=== PATIENT | female | born 1960 | race Caucasian/White ===

== ENCOUNTER → 2016-06-02 | Outpatient (CLI) | payer MEDICARE, OTHER ==
[2014-07-03 07:14] VITALS: BP 121/88
[~2016-06-02] MED LIST: ACET500T33 PO; ACLI400A2 IH; ALBU8.5H6 IH; ASPI1TAB30 PO; BACL10TA PO; BENZ100C PO; BUPIVACAINE MPF 0.25% 10 ML VIAL. ONE; CHOL20002 PO; DEXT15CA18 PO; DICL100G7 TP; DIPH25CA58 PO; ENOX40DI SQ; EPIN0.3A4 IJ; ESTR2TAB PO; FLUT16SP2 NS; FOLI1TAB16 PO; HYDR12.53 PO; HYDR4TAB PO; IBUP200T43 PO; INSU100I13 SQ; IOHEXOL 180 MG/ML 10 ML VIAL. ONE; LACT10SO PO; LEVALBUTER1.25 MG/0. IH; LINA145C PO; LISI1TAB7 PO; MAGN1TAB PO; METF10002 PO; MINE120C TP; MOME13HF2 IH; MULT1TAB11 PO; OMAL150V SQ; ONDA4TAB7 PO; OXYC10TA PO; OXYC10TA32 PO; OXYC1TAB7 PO; OXYC20TA34 PO; OXYC5CAP3 PO; OXYC5TAB PO; POTA10TA4 PO; POTA20TA12 PO; PROAIR HFA8.5 GM IH; PROC25SU21 RC; SODI500S4 PO; TIZA4CAP3 PO; TRAM50TA PO; VENL150C PO; VENL75CA PO; VENTOLIN HFA18 GM IH; methylPREDNISolone ACETATE 40 MG/ML VIAL. ONE; methylPREDNISolone ACETATE 80 MG/ML VIAL. ONE
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
== END ==
LOC: PNCL 07:51
PROVIDERS: ATTEND Anesthesiology
DX: M51.16 Intervertebral disc disorders with radiculopathy, lumbar region (principal); M50.10 Cervical disc disorder with radiculopathy, unspecified cervical region; M47.22 Other spondylosis with radiculopathy, cervical region; M96.1 Postlaminectomy syndrome, not elsewhere classified
CPT/HCPCS: 62323; J1030; J1040; J3490

== ENCOUNTER → 2016-06-09 | Outpatient (CLI) | payer MEDICARE, OTHER ==
[2014-07-03 07:14] VITALS: BP 121/88
[~2016-06-09] MED LIST changes: -IOHEXOL 180 MG/ML 10 ML VIAL. ONE; -methylPREDNISolone ACETATE 80 MG/ML VIAL. ONE
--- NOTE | 2016-06-10 13:17 | PAIN ---
DATE OF SERVICE: 06/09/2016 PROGRESS NOTE FOR PAIN CLINIC DIAGNOSES: 1. Myofascial pain. 2. Lumbar degenerative disk disease with lumbar radiculopathy. 3. Cervical radiculopathy with cervical degenerative disk disease and spondylosis with post-cervical laminectomy syndrome. HISTORY OF PRESENT ILLNESS: This is a 55-year-old female, who returns for followup status post lumbar epidural steroid injection x 2, most recently about 1 week ago. The patient reports she did very well with this, but the pain is returned now movingly in the mid and low back, but also the upper back. The patient has been wearing a prosthesis on her left leg. She has above knee amputation, which has been very heavy, is a temporary prosthesis and has been causing increased pain in her back with ambulation, standing and walking and she feels the exacerbation of pain. Also, she retried on a new medication for the gastroesophageal reflux, ____ Dexilant and after few hours of taking, had significant muscle spasms, pain throughout the legs, arms and the back. She reports that exacerbate the pain significantly right after she took it and feels that this is certainly a side effect from it and indeed this can have side effects from this medication. The patient reports still significant pain in the low back, mid back, upper back spasms in quadriceps as well, especially on the left side, but also on the right, rated 10 on a scale of 10, is a constant aching, intense pain, burning and stabbing in the mid back, upper back, low back, bilateral hips, mostly left posterior gluteus, but also in the anterior quadriceps as well. PHYSICAL EXAMINATION: VITAL SIGNS: The patient's blood pressure is 157/82, pulse 90, respirations 20, temperature 98.0 degrees Fahrenheit. Height is 5 feet 3 inches, weight is 174 pounds. GENERAL: The patient is awake, alert, oriented, appropriate, very pleasant demeanor. HEENT: Shows normocephalic, atraumatic. Extraocular movements are intact and symmetrical. Oral cavity, mucous membranes are moist and pink. Dentition is intact. NECK: Shows anterior throat supple without palpable lymphadenopathy noted. Swallow reflex is symmetrical. Neck shows full rotational motion of the cervical spine without significant tenderness or difficulty including extension and flexion. CHEST: Shows normal on inspection. Breath sounds are clear to auscultation bilaterally. HEART: Shows S1 and S2 clear. ABDOMEN: Soft, nontender, nondistended. No palpable organomegaly is noted. No rebound or guarding demonstrated. BACK: The patient's back shows spine grossly in the midline. Cervical paraspinous muscle shows some mild tenderness with palpation bilaterally, but only mildly without asymmetry atrophy, hypertrophy. The patient's low back shows some moderate tenderness with palpation in multiple areas are very firm rope-like musculature, very tender on the left paraspinous musculature in the mid upper and lower distribution consistent with trigger point areas of musculature. There is also present in the bilateral lower thoracic paraspinous musculature is very firm rope-like musculature bilaterally, appears roughly symmetrical with very firm, very tender to palpation, even moderate palpation in these regions with very firm rope-like musculature palpable, consistent with trigger point areas of musculature in this region. In this region of the thoracic paraspinous muscles, also with palpation over the left gluteus very firm rope-like musculature x 3 areas which is very tender and firm one area on the right side ____ consistent with trigger point musculature as well with the patient's lower extremities, again, above knee amputation is demonstrated on the left side. The patient has significant tenderness in the superior aspect of the quadriceps musculature on both legs. Very tender rope-like firm musculature easily palpable without specific radiation. PLAN Options were discussed with the patient including the patient's old chart was reviewed as well as her current medication regimen updated. Current review of systems updated today as well. We discussed trigger point injections. She has had an epidural injection about a week ago and then the main part of her pain ____ becoming from myofascial etiology at this time, we will proceed with trigger point injections of the aforementioned musculature. Risks were again discussed including, but not limited to bleeding, infection, possibility of intravascular injection sequelae, spread of local anesthetic and numbness, pneumothorax, side effects of steroid medication, exacerbation of the patient's pain and poor results regarding pain control. The patient understands and wishes to proceed. The patient will return to the clinic in approximately 2 weeks for followup, was counseled on return appointment, activity level, and side effects to be aware of. DIAGNOSES: 1. Myofascial pain. 2. Lumbar degenerative disk disease with lumbar radiculopathy. 3. Cervical radiculopathy with cervical degenerative disk disease and spondylosis with post-laminectomy syndrome. PROCEDURE: Trigger point injections of the bilateral thoracic musculature, bilateral lumbar paraspinous musculature, bilateral quadriceps musculature and the bilateral gluteus musculature. Local anesthetic was used under sterile prep and drape with medications injected a total of 40 mg Depo-Medrol plus total of 14 mL of 0.25% bupivacaine after negative aspiration at each injection site. CONDITION AT DISCHARGE: The patient is stable. The patient tolerated the procedure well, had no complications. MI FRANCO MD DR: MINESH/stephanie JOB#: [id number] / [id number]
== END ==
LOC: PNCL 13:26
PROVIDERS: ATTEND Anesthesiology
DX: M51.16 Intervertebral disc disorders with radiculopathy, lumbar region (principal); M50.10 Cervical disc disorder with radiculopathy, unspecified cervical region; M47.22 Other spondylosis with radiculopathy, cervical region; M96.1 Postlaminectomy syndrome, not elsewhere classified; J45.909 Unspecified asthma, uncomplicated; K58.9 Irritable bowel syndrome, unspecified; Z90.710 Acquired absence of both cervix and uterus; M86.9 Osteomyelitis, unspecified; Z96.60 Presence of unspecified orthopedic joint implant
CPT/HCPCS: 20553; J1030; J3490

== ENCOUNTER 2016-07-05 07:57 | Inpatient (IN) | payer OTHER ==
[2016-07-05] VITALS (12 sets, daily range): BP systolic 91–109; BP diastolic 51–79
[~2016-07-05] VITALS: Ht 160 cm; Wt 74.4 kg
[~2016-07-05 07:57] MED LIST changes: +ACYC800T PO; -BUPIVACAINE MPF 0.25% 10 ML VIAL. ONE; +CLOB15CR TP; +ESOM40CA PO; +FLUT9.9S NS; +IV RINGERS,LACTATED 1000ML 1,000 ML IV SCH; +LIDOCAINE 1% 1 ML SYRINGE. ID PRN; +METF500T4 PO; +ONDA8TAB12 PO; +ONDANSETRON PF 4 MG/2 ML VIAL. IV PRN; +SILV20CR4 TP; +XOPENEX HFA15 GM IH; -methylPREDNISolone ACETATE 40 MG/ML VIAL. ONE
[2016-07-05] MEDS ORDERED: PROAIR HFA8.5 GM INH (08:30)
[2016-07-05] MEDS ORDERED: MOME13HF IH (08:31)
[2016-07-05] MEDS ORDERED: INSU100I13 SQ (08:35)
[2016-07-05] MEDS ORDERED: METF500T4 PO (08:37)
[2016-07-05] MEDS ORDERED: MIDAZOLAM HCL 2 MG/2 ML VIAL. ONE (08:53)
[2016-07-05] MEDS ORDERED: SUCCINYLCHOLINE 200 MG/10 ML VIAL. ONE (08:53)
[2016-07-05] MEDS ORDERED: ROCURONIUM 50 MG/5 ML VIAL. ONE (08:53)
[2016-07-05] MEDS ORDERED: FENTANYL PF 100 MCG/2 ML VIAL. ONE (08:53)
[2016-07-05] MEDS ORDERED: DEXAMETHASONE SOD PHOS 20 MG/5 ML VIAL. ONE (08:53)
[2016-07-05] MEDS ORDERED: PROPOFOL 20 ML IV ONE (08:53)
[2016-07-05] MEDS ORDERED: LIDOCAINE 2% 100 MG/5 ML DISP.SYRIN. ONE (08:53)
[2016-07-05] MEDS ORDERED: DESFLURANE > 120 MINUTES IH ONE (08:53)
[2016-07-05] MEDS ORDERED: ONDANSETRON PF 4 MG/2 ML VIAL. ONE (08:53)
[2016-07-05] MEDS ORDERED: SODIUM OXYBATE (08:54)
[2016-07-05] MEDS ORDERED: HYDROMORPHONE 2 MG/ML VIAL. ONE ×2 (09:51→13:32)
[2016-07-05] MEDS ORDERED: KETAMINE HCL 500 MG/10 ML VIAL. ONE (09:54)
[2016-07-05] MEDS ORDERED: SURGICEL HEMOSTAT 4X8 EACH. ONE ×2 (10:06→10:07)
[2016-07-05] MEDS ORDERED: BUPIVAC MPF-EPI 0.5%-1:200000 30 ML VIAL. ONE (10:07)
[2016-07-05] MEDS ORDERED: EPHEDRINE PF IN SALINE 50 MG/5 ML DISP.SYRIN. IV ONE (10:46)
[2016-07-05] MEDS ORDERED: SUGAMMADEX SODIUM 200 MG/2 ML VIAL. IVP ONE (12:22)
[2016-07-05] MEDS ORDERED: POTASSIUM CL 20MEQ D5-0.45NACL 1,000 ML IV SCH (12:55)
--- NOTE | 2016-07-05 12:55 | PDOC4 ---
Operative Note Operative Note Operative Note Preoperative Diagnosis: Gastroesophageal reflux disease Postoperative Diagnosis: Same Procedure: Laparoscopic revision and redo of Torin fundoplication Surgeon: Dario Fam.: Dr. Toney Anesthesia: Gen. Estimated Blood Loss: 20 mL Specimen: None Drains: None Complications: None Indications: The patient is a 55-year-old female with a prior history of severe gastric esophageal reflux disease. She underwent a laparoscopic Torin fundoplication years ago with a very good result. Over the last few months however she's had recurrence of her reflux disease. Evaluation suggests loosening of the prior wrap. She was referred for surgical revision and possible redo fundoplication. The risks of surgery were discussed which include bleeding, infection, recurrent herniation, gastric or esophageal perforation, visceral injury, recurrent reflux, gas bloat syndrome, dysphasia, potential need for additional surgeries or procedures. She understands and would like to proceed. Description: The patient was taken to the operating room and placed supine on the operating table. General anesthesia was performed. The patient was then placed in lithotomy. The abdomen was prepped with ChloraPrep and draped in a standard surgical fashion. A small incision was made in the right upper quadrant through which a visualized 5 mm trocar was inserted. A pneumoperitoneum was then created and the laparoscope was introduced. Initial inspection showed very few adhesions and no evidence of intra-abdominal bleeding or visceral injury. A 5 mm trocar was then inserted to the left and superior to the umbilicus. The camera port was relocated to that trocar. The previous right upper quadrant trocar was exchanged with a 12 mm trocar through which a soft fan retractor was used to elevate the left lobe of the liver. In the right upper quadrant a 5 mm trocar was inserted. In the left upper quadrant an 11 mm trocar was inserted while in the left lateral abdomen a 5 mm trocar was inserted. There were some anterior abdominal wall adhesions each were readily freed up with a combination of the ultrasonic scissors and sharp dissection. We then directed our attention to the upper portion of the stomach. There were some hepatic adhesions to the stomach which were freed up with sharp dissection. We were able to identify some of the initial anatomy from the prior fundoplication. The fundus did appear to have loosened significantly and the prior Ethibond sutures were seen and divided. As expected there was a significant amount of scar tissue and adhesions surrounding the prior fundoplication. These were fairly filmy however and readily mobilized and lysed. We were able to then delineate the left and right kaia and the prior approximating silk suture was well intact. There was no evidence of a significant hiatal hernia. We continued dividing the remaining adhesions of the fundoplasty allowing for complete mobilization of the fundus and clear identification of the distal esophagus. We were able to readily reapproximate the fundus to re-create a new and tighter fundoplication. A shoeshine maneuver was used to ensure no kinks or twists.. The left and right kaia were then reapproximated anteriorly with a single 2-0 silk suture using the Endo Stitch device. The fundus was then wrapped around in a 360 fashion creating the fundoplication. An initial 2-0 Ethibond suture was used securing the fundic lips together. Another suture was placed superior to this which incorporated a small bite of the anterior esophagus. An additional suture was then placed inferiorly completing the fundoplication. At this point hemostasis was good, and the fundoplication was intact with a nice orientation. The 11 and 12 mm trochars were then removed and the fascia closed with 0 Vicryl using an Endo Close. The remaining ports were removed and the pneumoperitoneum was relieved. Skin at all incisions was closed with 4-0 Monocryl. Steri-Strips and dressings were applied. The patient tolerated the procedure well. NEAL PITTMAN MD Jul 05, 2016 12:55
[2016-07-05] MEDS ORDERED: ONDANSETRON PF 4 MG/2 ML VIAL. IV PRN (13:00)
[2016-07-05] MEDS ORDERED: 0.9 % SODIUM CHLORIDE 10 ML DISP.SYRIN. IV PRN (13:00)
[2016-07-05] MEDS ORDERED: HYDROMORPHONE STANDARD PCA 30 ML IV PRN (13:00)
[2016-07-05] MEDS ORDERED: ALBUTEROL SULFATE 2.5 MG/3 ML NEBU. NEB PRN (13:30)
[2016-07-05] MEDS: HYDROMORPHONE 2 MG/ML VIAL. IV PRN ×5 (13:36→15:33)
[2016-07-05] MEDS ORDERED: MEPERIDINE PF 25 MG/ML VIAL. IV PRN (14:00)
[2016-07-05] MEDS: VENLAFAXINE 50 MG TABLET. PO SCH ×3 (14:00→20:44)
[2016-07-05] MEDS: DIPHENHYDRAMINE 50 MG/ML VIAL IV PRN ×4 (14:47→19:34)
[2016-07-05] MEDS: DIPHENHYDRAMINE 50 MG/ML VIAL IVP PRN ×2 (15:41→16:09)
[2016-07-05] MEDS ORDERED: NON FORMULARY ITEM (Levalbuterol Tartrate (Xopenex Hfa) 2 PUFF) IH SCH (16:00)
[2016-07-05] MEDS: IV 1/2 NORMAL SALINE 1,000 ML IV SCH (16:35)
[2016-07-05] MEDS ORDERED: PNEUMOCOCCAL VAX SCREEN BY RX. MC ONE (17:15)
[2016-07-05] MEDS: ALBUTEROL SULFATE 2.5 MG/3 ML NEBU. NEB SCH ×2 (17:16→19:48)
[2016-07-05] MEDS: BUDESONIDE 0.5 MG/2 ML NEBU NEB SCH (19:48)
[2016-07-05] MEDS ORDERED: NON FORMULARY ITEM (Mometasone/Formoterol (Dulera 200 Mcg/5 Mcg Inhaler) 2 PUFF) IH SCH (21:00)
[2016-07-05] MEDS ORDERED: PNEUMOC CONJ VACC 23-VALENT 0.5 ML VIAL. VAX IM ONE (21:00)
[2016-07-05] MEDS ORDERED: AUTO INJCT IM PRN (21:45)
[2016-07-05] MEDS ORDERED: EPINEPHRINE 0.3 MG/0.3 ML IM PRN (21:45)
[2016-07-05] MEDS ORDERED: DIPHENHYDRAMINE 50 MG/ML VIAL IVP PRN (21:45)
[2016-07-05] MEDS ORDERED: VENLAFAXINE 50 MG TABLET. PO SCH (22:00)
[2016-07-05] MEDS: FENTANYL PF 100 MCG/2 ML VIAL. IV PRN (23:59)
[2016-07-06] VITALS (7 sets, daily range): BP systolic 96–130; BP diastolic 72–82
[2016-07-06] MEDS: FENTANYL PF 100 MCG/2 ML VIAL. IV PRN ×3 (02:06→06:01)
--- NOTE | 2016-07-06 02:31 | HP ---
ADMIT DATE: 07/05/2016 CHIEF COMPLAINT: Severe GERD; status post redo of Torin fundoplication. HISTORY OF PRESENT ILLNESS: The patient is a 55-year-old woman with multiple medical issues including GERD for which she actually had undergone a Torin fundoplication several years ago with apparently good results. However, here more recently GERD had become worse and worse despite increase in medications including two proton pump inhibitors. She was therefore taken to the OR today by Dr. Bishop for a redo to help her symptoms. Surgery went without a hitch. She is now on the med/surg floor for observation. PAST MEDICAL HISTORY: GERD as above, hiatal hernia, renal calculi, irritable bowel syndrome, history of deep vein thrombosis, asthma, bronchitis, narcolepsy, cataplexy, she is on BiPAP at night. 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 PAST SURGICAL HISTORY: Cholecystectomy, JEFFERSON with bilateral oophorectomies, splenectomy, bilateral fasciotomies of her lower extremities for compartment syndrome, cervical spine fusion, left ankle surgery and polio/postpolio syndrome. FAMILY HISTORY: Essentially negative. SOCIAL HISTORY: Lives with her fiance. No toxic habits. ALLERGIES: Multiple including BETADINE, BENZOIN ADHESIVES, CODEINE, VALIUM, ERYTHROMYCIN, DEMEROL, MORPHINE, VANCOMYCIN, PREDNISONE, KEFLEX, LYRICA and REGLAN. HOME MEDICATIONS: MAR reconciled with home medication list. REVIEW OF SYSTEMS: Pain currently is under good control. She does have a nasal trumpet BiPAP in place. Denies any concerns for itching, Benadryl 12.5 insufficient. PHYSICAL EXAMINATION: VITAL SIGNS: From today show a blood pressure of 98/61, heart rate of 85, respiratory rate at 18. She is afebrile. GENERAL: This is an overweight 55-year-old woman, alert and oriented, in no acute distress. HEENT: Shows no scleral icterus. Nasal trumpet in place. Oral mucosa pink and moist, edentulous. NECK: Supple. LUNGS: Clear to auscultation anteriorly. HEART: Regular rate and rhythm. ABDOMEN: Slightly distended, soft. Tenderness to palpation. Incisions from laparoscopy are covered and dry. EXTREMITIES: Show no edema. Left AKA. LABORATORY DATA: CBC from 7 days ago with WBC of 12.5, hemoglobin 13, platelets at 225. Chemistries are not available. ASSESSMENT AND PLAN: The patient is a 55-year-old woman with multiple unusual medical issues including severe GERD for which she underwent a redo Torin fundoplication today. She tolerated the procedure without any difficulties. Pain regimen as her surgery, Dr. Bishop, with Dilaudid [employer]LE[employer] ASSISTANT. We will continue all her home medication, especially for asthma and allergies. These will be converted to nebulizers and medications available here in the hospital. For her narcolepsy and cataplexy, she will continue on her BiPAP at night. Continue relatively high dose of venlafaxine as well. The patient does have a history of diabetes for which she is on metformin. We will hold medications here in acute phase, monitor with insulin sliding scale only for the time being. Lantus on hold while she is n.p.o. Prophylaxis will be instituted in the morning with Lovenox. Disposition pending on p.o. clearance and eval by surgery. MICHELL MOREAU MD DR: UR/nts JOB#: [id number] / [id number] ecc NICHOLAS HEWITT MD
[2016-07-06] MEDS: IV 1/2 NORMAL SALINE 1,000 ML IV SCH ×3 (03:59→23:21)
[2016-07-06] MEDS: BUDESONIDE 0.5 MG/2 ML NEBU NEB SCH ×2 (07:07→20:42)
[2016-07-06] MEDS: ALBUTEROL SULFATE 2.5 MG/3 ML NEBU. NEB SCH ×4 (07:07→20:42)
[2016-07-06] MEDS ORDERED: PANTOPRAZOLE IV PUSH 40 MG VIAL. IVP SCH (07:30)
[2016-07-06] MEDS ORDERED: OXYCODONE/APAP 5/325 TABLET. PO PRN ×2 (07:30→07:45)
[2016-07-06 07:56] LABS: BASO # 0.1 x10^3/uL (0.0-0.2); BASO % 1 % (0-3); EOS % 0 % (0-3); HEMATOCRIT 29.9 % (36.0-47.0); HEMOGLOBIN 9.7 g/dL (12.0-15.5); LYMPH # 2.9 x10^3/uL (1.0-4.8); LYMPH % 24 % (24-48); MEAN CORPUSCULAR HEMOGLOBIN 31 pg (25-35); MEAN CORPUSCULAR HGB CONC 32 g/dL (31-37); MEAN CORPUSCULAR VOLUME 95 fL (79-100); MONO % 12 % (0-9); NEUT % 63 % (31-73); PLATELET COUNT 313 x10^3/uL (140-400); RED BLOOD COUNT 3.16 x10^6/uL (3.50-5.40); RED CELL DISTRIBUTION WIDTH 14.9 % (11.5-14.5)
[2016-07-06] MEDS: FLUTICASONE 50MCG/NASAL SPRAY 16GM BOTTLE. NS SCH (07:57)
[2016-07-06 08:17] LABS: ALBUMIN 2.9 g/dL (3.4-5.0); CALCIUM 8.7 mg/dL (8.5-10.1); CREATININE 0.7 mg/dL (0.6-1.0); GFR 86.6; POTASSIUM 4.1 mmol/L (3.5-5.1); TOTAL BILIRUBIN 0.3 mg/dL (0.2-1.0); TOTAL PROTEIN 5.7 g/dL (6.4-8.2)
[2016-07-06] MEDS: NON FORMULARY ITEM PO SCH (08:23)
[2016-07-06] MEDS: ENOXAPARIN 40 MG/0.4 ML DISP.SYRIN. SQ SCH (08:45)
--- NOTE | 2016-07-06 10:37 | PDOC ---
URIAH BURK PRODUCTION CORRUGATOR 07/06/16 1037: SURGICAL PROGRESS NOTE Subjective tolerating clears no coughing, reflux symptoms postop no nausea would like hartmann out reports pill a little harsh down throat Vital Signs Vital Signs Date Time Temp Pulse Resp B/P Pulse Ox O2 Delivery O2 Flow Rate FiO2 07/06/16 07:55 16 92 Room Air 07/06/16 07:18 4.0 07/06/16 06:31 99.0 72 119/72 99.0 I&O Intake and Output 07/06/16 07:00 Intake Total 2210 ml Output Total 550 ml Balance 1660 ml Intake Oral 30 ml IV Total 2000 ml Other 180 ml Output Urine Total 550 ml General: Alert, Oriented X3, Cooperative, No acute distress Abdomen: Soft, Other (ND, lap dressings dry) Labs Laboratory Tests Test 07/06/16 07:40 White Blood Count 12.0x10^3/uL (4.0-11.0) Red Blood Count 3.16x10^6/uL (3.50-5.40) Hemoglobin 9.7g/dL (12.0-15.5) Hematocrit 29.9% (36.0-47.0) Mean Corpuscular Volume 95fL (79-100) Mean Corpuscular Hemoglobin 31pg (25-35) Mean Corpuscular Hemoglobin Concent 32g/dL (31-37) Red Cell Distribution Width 14.9% (11.5-14.5) Platelet Count 313x10^3/uL (140-400) Neutrophils (%) (Auto) 63% (31-73) Lymphocytes (%) (Auto) 24% (24-48) Monocytes (%) (Auto) 12% (0-9) Eosinophils (%) (Auto) 0% (0-3) Basophils (%) (Auto) 1% (0-3) Neutrophils # (Auto) 7.6x10^3uL (1.8-7.7) Lymphocytes # (Auto) 2.9x10^3/uL (1.0-4.8) Monocytes # (Auto) 1.5x10^3/uL (0.0-1.1) Eosinophils # (Auto) 0.0x10^3/uL (0.0-0.7) Basophils # (Auto) 0.1x10^3/uL (0.0-0.2) Sodium Level 143mmol/L (136-145) Potassium Level 4.1mmol/L (3.5-5.1) Chloride Level 107mmol/L (98-107) Carbon Dioxide Level 27mmol/L (21-32) Anion Gap 9 (6-14) Blood Urea Nitrogen 12mg/dL (7-20) Creatinine 0.7mg/dL (0.6-1.0) Estimated GFR (Cockcroft-Gault) 86.6 BUN/Creatinine Ratio 17 (6-20) Glucose Level 95mg/dL (70-99) Calcium Level 8.7mg/dL (8.5-10.1) Total Bilirubin 0.3mg/dL (0.2-1.0) Aspartate Amino Transf (AST/SGOT) 44U/L (15-37) Alanine Aminotransferase (ALT/SGPT) 41U/L (14-59) Alkaline Phosphatase 66U/L (46-116) Total Protein 5.7g/dL (6.4-8.2) Albumin 2.9g/dL (3.4-5.0) Albumin/Globulin Ratio 1.0 (1.0-1.7) Laboratory Tests Test 07/06/16 07:40 White Blood Count 12.0x10^3/uL (4.0-11.0) Red Blood Count 3.16x10^6/uL (3.50-5.40) Hemoglobin 9.7g/dL (12.0-15.5) Hematocrit 29.9% (36.0-47.0) Mean Corpuscular Volume 95fL (79-100) Mean Corpuscular Hemoglobin 31pg (25-35) Mean Corpuscular Hemoglobin Concent 32g/dL (31-37) Red Cell Distribution Width 14.9% (11.5-14.5) Platelet Count 313x10^3/uL (140-400) Neutrophils (%) (Auto) 63% (31-73) Lymphocytes (%) (Auto) 24% (24-48) Monocytes (%) (Auto) 12% (0-9) Eosinophils (%) (Auto) 0% (0-3) Basophils (%) (Auto) 1% (0-3) Neutrophils # (Auto) 7.6x10^3uL (1.8-7.7) Lymphocytes # (Auto) 2.9x10^3/uL (1.0-4.8) Monocytes # (Auto) 1.5x10^3/uL (0.0-1.1) Eosinophils # (Auto) 0.0x10^3/uL (0.0-0.7) Basophils # (Auto) 0.1x10^3/uL (0.0-0.2) Sodium Level 143mmol/L (136-145) Potassium Level 4.1mmol/L (3.5-5.1) Chloride Level 107mmol/L (98-107) Carbon Dioxide Level 27mmol/L (21-32) Anion Gap 9 (6-14) Blood Urea Nitrogen 12mg/dL (7-20) Creatinine 0.7mg/dL (0.6-1.0) Estimated GFR (Cockcroft-Gault) 86.6 BUN/Creatinine Ratio 17 (6-20) Glucose Level 95mg/dL (70-99) Calcium Level 8.7mg/dL (8.5-10.1) Total Bilirubin 0.3mg/dL (0.2-1.0) Aspartate Amino Transf (AST/SGOT) 44U/L (15-37) Alanine Aminotransferase (ALT/SGPT) 41U/L (14-59) Alkaline Phosphatase 66U/L (46-116) Total Protein 5.7g/dL (6.4-8.2) Albumin 2.9g/dL (3.4-5.0) Albumin/Globulin Ratio 1.0 (1.0-1.7) Problem List Problems Medical Problems: (1) GERD (gastroesophageal reflux disease) Status: Acute Assessment/Plan s/p lap revision of fundoplication change to liquids oxycodone, DC hartmann, stop ppi clears today Problems: NEAL PITTMAN MD 07/07/16 0803: SURGICAL PROGRESS NOTE Assessment/Plan Agree with above Problems: URIAH BURK APRN Jul 06, 2016 10:37 NEAL PITTMAN MD Jul 07, 2016 08:03
[2016-07-06] MEDS ORDERED: OXYCODONE 5 MG/5 ML ORAL SOLUTION. PO PRN (10:45)
[2016-07-06] MEDS: CLOBETASOL EMOLLIENT 0.05% TOPICAL CREAM 15GM TUBE. TP SCH (11:46)
--- NOTE | 2016-07-06 16:10 | PDOC ---
PROGRESS NOTES Chief Complaint Chief Complaint Severe GERD Torin fundo redo ASSESSMENT AND PLAN: 1. GERD: s/p redo of Torin fundoplication on 07/[address] Bishop. no apparent complications 2. Pain control: dilaudid causing severe pruritus, fentanyl insufficient. liquid oxy works well, but not long enough. decrease interval to q3h PRN 3. Nutrition: tolerating clears, advance to full liquid as per surg team 4. Asthma: no acute issues. has extensive home regimen. nebs PRN 5. Narcolepsy: on BiPAP at night; has own appliance. venlafaxine 300 qAM 6. DM: home metformin currently on hold with limited PO calorie intake. cover w/ ISS 7. Prophylaxis: lovenox. PPI stopped by surgery 8. Dispo: anticipate D/C home in AM if tolerating reg PO intake Vitals Vitals Vital Signs Date Time Temp Pulse Resp B/P Pulse Ox O2 Delivery O2 Flow Rate FiO2 07/06/16 11:48 20 Room Air 07/06/16 11:30 95 07/06/16 10:45 99.1 84 96/73 99.1 07/06/16 07:18 4.0 Physical Exam General: Alert, Oriented X3, Cooperative, No acute distress Heart: Regular rate Lungs: Clear Abdomen: Normal bowel sounds, Soft, Other (ND, lap dressings dry) Extremities: No edema, Other (L AKA) Labs LABS Laboratory Tests Test 07/06/16 07:40 White Blood Count 12.0x10^3/uL (4.0-11.0) Red Blood Count 3.16x10^6/uL (3.50-5.40) Hemoglobin 9.7g/dL (12.0-15.5) Hematocrit 29.9% (36.0-47.0) Mean Corpuscular Volume 95fL (79-100) Mean Corpuscular Hemoglobin 31pg (25-35) Mean Corpuscular Hemoglobin Concent 32g/dL (31-37) Red Cell Distribution Width 14.9% (11.5-14.5) Platelet Count 313x10^3/uL (140-400) Neutrophils (%) (Auto) 63% (31-73) Lymphocytes (%) (Auto) 24% (24-48) Monocytes (%) (Auto) 12% (0-9) Eosinophils (%) (Auto) 0% (0-3) Basophils (%) (Auto) 1% (0-3) Neutrophils # (Auto) 7.6x10^3uL (1.8-7.7) Lymphocytes # (Auto) 2.9x10^3/uL (1.0-4.8) Monocytes # (Auto) 1.5x10^3/uL (0.0-1.1) Eosinophils # (Auto) 0.0x10^3/uL (0.0-0.7) Basophils # (Auto) 0.1x10^3/uL (0.0-0.2) Sodium Level 143mmol/L (136-145) Potassium Level 4.1mmol/L (3.5-5.1) Chloride Level 107mmol/L (98-107) Carbon Dioxide Level 27mmol/L (21-32) Anion Gap 9 (6-14) Blood Urea Nitrogen 12mg/dL (7-20) Creatinine 0.7mg/dL (0.6-1.0) Estimated GFR (Cockcroft-Gault) 86.6 BUN/Creatinine Ratio 17 (6-20) Glucose Level 95mg/dL (70-99) Calcium Level 8.7mg/dL (8.5-10.1) Total Bilirubin 0.3mg/dL (0.2-1.0) Aspartate Amino Transf (AST/SGOT) 44U/L (15-37) Alanine Aminotransferase (ALT/SGPT) 41U/L (14-59) Alkaline Phosphatase 66U/L (46-116) Total Protein 5.7g/dL (6.4-8.2) Albumin 2.9g/dL (3.4-5.0) Albumin/Globulin Ratio 1.0 (1.0-1.7) MICHELL MOREAU MD Jul 06, 2016 16:10
[2016-07-06] MEDS: LINZESS 290 MCG PO SCH (16:15)
[2016-07-06] MEDS: OXYCODONE 5 MG/5 ML ORAL SOLUTION. PO PRN (20:20)
[2016-07-07 03:15] VITALS: BP 125/80
[2016-07-07] MEDS: OXYCODONE 5 MG/5 ML ORAL SOLUTION. PO PRN ×5 (03:26→20:32)
[2016-07-07 06:54] VITALS: BP 117/79
[2016-07-07] MEDS: ALBUTEROL SULFATE 2.5 MG/3 ML NEBU. NEB SCH ×4 (07:12→18:58)
[2016-07-07] MEDS: BUDESONIDE 0.5 MG/2 ML NEBU NEB SCH ×2 (07:12→18:58)
[2016-07-07 07:46] LABS: BASO # 0.1 x10^3/uL (0.0-0.2); BASO % 1 % (0-3); EOS % 4 % (0-3); HEMATOCRIT 30.2 % (36.0-47.0); LYMPH # 3.6 x10^3/uL (1.0-4.8); LYMPH % 34 % (24-48); MEAN CORPUSCULAR HEMOGLOBIN 31 pg (25-35); MEAN CORPUSCULAR HGB CONC 33 g/dL (31-37); MEAN CORPUSCULAR VOLUME 94 fL (79-100); MONO % 10 % (0-9); NEUT % 50 % (31-73); PLATELET COUNT 313 x10^3/uL (140-400); WHITE BLOOD COUNT 10.5 x10^3/uL (4.0-11.0)
[2016-07-07 08:01] LABS: ALBUMIN 2.8 g/dL (3.4-5.0); CALCIUM 8.4 mg/dL (8.5-10.1); CREATININE 0.7 mg/dL (0.6-1.0); GFR 86.6; POTASSIUM 3.9 mmol/L (3.5-5.1); TOTAL BILIRUBIN 0.3 mg/dL (0.2-1.0); TOTAL PROTEIN 5.7 g/dL (6.4-8.2)
--- NOTE | 2016-07-07 08:05 | PDOC ---
PROGRESS NOTES Subjective Subjective Doing well, gets full quicker, but taking po well Objective Objective Vital Signs Date Time Temp Pulse Resp B/P Pulse Ox O2 Delivery O2 Flow Rate FiO2 07/07/16 07:14 96 Room Air 07/07/16 06:54 98.9 74 20 117/79 98.9 07/06/16 20:47 5.0 Intake and Output 07/07/16 06:59 Intake Total 3640 ml Output Total 1975 ml Balance 1665 ml Intake Oral 3050 ml IV Total 590 ml Output Urine Total 1975 ml Physical Exam Physical Exam abdomen soft, nontender Assessment Assessment Problems Medical Problems: (1) GERD (gastroesophageal reflux disease) Status: Acute Plan Plan of Care continue therapy, case management following, pt requests rehab, will see if possible; plan for transfer vs discharge home tomorrow pending PT recs Comment Review of Relevant I have reviewed the following items sparkle (where applicable) has been applied. Labs Laboratory Tests Test 07/06/16 07:40 07/07/16 07:10 White Blood Count 12.0x10^3/uL (4.0-11.0) 10.5x10^3/uL (4.0-11.0) Red Blood Count 3.16x10^6/uL (3.50-5.40) 3.20x10^6/uL (3.50-5.40) Hemoglobin 9.7g/dL (12.0-15.5) 10.0g/dL (12.0-15.5) Hematocrit 29.9% (36.0-47.0) 30.2% (36.0-47.0) Mean Corpuscular Volume 95fL (79-100) 94fL (79-100) Mean Corpuscular Hemoglobin 31pg (25-35) 31pg (25-35) Mean Corpuscular Hemoglobin Concent 32g/dL (31-37) 33g/dL (31-37) Red Cell Distribution Width 14.9% (11.5-14.5) 15.0% (11.5-14.5) Platelet Count 313x10^3/uL (140-400) 313x10^3/uL (140-400) Neutrophils (%) (Auto) 63% (31-73) 50% (31-73) Lymphocytes (%) (Auto) 24% (24-48) 34% (24-48) Monocytes (%) (Auto) 12% (0-9) 10% (0-9) Eosinophils (%) (Auto) 0% (0-3) 4% (0-3) Basophils (%) (Auto) 1% (0-3) 1% (0-3) Neutrophils # (Auto) 7.6x10^3uL (1.8-7.7) 5.2x10^3uL (1.8-7.7) Lymphocytes # (Auto) 2.9x10^3/uL (1.0-4.8) 3.6x10^3/uL (1.0-4.8) Monocytes # (Auto) 1.5x10^3/uL (0.0-1.1) 1.1x10^3/uL (0.0-1.1) Eosinophils # (Auto) 0.0x10^3/uL (0.0-0.7) 0.5x10^3/uL (0.0-0.7) Basophils # (Auto) 0.1x10^3/uL (0.0-0.2) 0.1x10^3/uL (0.0-0.2) Sodium Level 143mmol/L (136-145) 146mmol/L (136-145) Potassium Level 4.1mmol/L (3.5-5.1) 3.9mmol/L (3.5-5.1) Chloride Level 107mmol/L (98-107) 110mmol/L (98-107) Carbon Dioxide Level 27mmol/L (21-32) 28mmol/L (21-32) Anion Gap 9 (6-14) 8 (6-14) Blood Urea Nitrogen 12mg/dL (7-20) 9mg/dL (7-20) Creatinine 0.7mg/dL (0.6-1.0) 0.7mg/dL (0.6-1.0) Estimated GFR (Cockcroft-Gault) 86.6 86.6 BUN/Creatinine Ratio 17 (6-20) 13 (6-20) Glucose Level 95mg/dL (70-99) 82mg/dL (70-99) Calcium Level 8.7mg/dL (8.5-10.1) 8.4mg/dL (8.5-10.1) Total Bilirubin 0.3mg/dL (0.2-1.0) 0.3mg/dL (0.2-1.0) Aspartate Amino Transf (AST/SGOT) 44U/L (15-37) 33U/L (15-37) Alanine Aminotransferase (ALT/SGPT) 41U/L (14-59) 33U/L (14-59) Alkaline Phosphatase 66U/L (46-116) 65U/L (46-116) Total Protein 5.7g/dL (6.4-8.2) 5.7g/dL (6.4-8.2) Albumin 2.9g/dL (3.4-5.0) 2.8g/dL (3.4-5.0) Albumin/Globulin Ratio 1.0 (1.0-1.7) 1.0 (1.0-1.7) Laboratory Tests Test 07/07/16 07:10 White Blood Count 10.5x10^3/uL (4.0-11.0) Red Blood Count 3.20x10^6/uL (3.50-5.40) Hemoglobin 10.0g/dL (12.0-15.5) Hematocrit 30.2% (36.0-47.0) Mean Corpuscular Volume 94fL (79-100) Mean Corpuscular Hemoglobin 31pg (25-35) Mean Corpuscular Hemoglobin Concent 33g/dL (31-37) Red Cell Distribution Width 15.0% (11.5-14.5) Platelet Count 313x10^3/uL (140-400) Neutrophils (%) (Auto) 50% (31-73) Lymphocytes (%) (Auto) 34% (24-48) Monocytes (%) (Auto) 10% (0-9) Eosinophils (%) (Auto) 4% (0-3) Basophils (%) (Auto) 1% (0-3) Neutrophils # (Auto) 5.2x10^3uL (1.8-7.7) Lymphocytes # (Auto) 3.6x10^3/uL (1.0-4.8) Monocytes # (Auto) 1.1x10^3/uL (0.0-1.1) Eosinophils # (Auto) 0.5x10^3/uL (0.0-0.7) Basophils # (Auto) 0.1x10^3/uL (0.0-0.2) Sodium Level 146mmol/L (136-145) Potassium Level 3.9mmol/L (3.5-5.1) Chloride Level 110mmol/L (98-107) Carbon Dioxide Level 28mmol/L (21-32) Anion Gap 8 (6-14) Blood Urea Nitrogen 9mg/dL (7-20) Creatinine 0.7mg/dL (0.6-1.0) Estimated GFR (Cockcroft-Gault) 86.6 BUN/Creatinine Ratio 13 (6-20) Glucose Level 82mg/dL (70-99) Calcium Level 8.4mg/dL (8.5-10.1) Total Bilirubin 0.3mg/dL (0.2-1.0) Aspartate Amino Transf (AST/SGOT) 33U/L (15-37) Alanine Aminotransferase (ALT/SGPT) 33U/L (14-59) Alkaline Phosphatase 65U/L (46-116) Total Protein 5.7g/dL (6.4-8.2) Albumin 2.8g/dL (3.4-5.0) Albumin/Globulin Ratio 1.0 (1.0-1.7) Medications Current Medications Ondansetron HCl 4 mg 4 mg PRN Q6HRS PRN IV Nausea; Start 07/05/16 at 07:00; Stop 07/06/16 at 06:59; Status DC Lactated Ringer's (Iv Lactated Ringers) 1,000 ml @ 0 mls/hr Q0M IV Last administered on 07/05/16 08:39; Start 07/05/16 at 07:00; Stop 07/05/16 at 18:59 ; Status DC Lidocaine HCl 2 ml 2 ml 1X PRN PRN ID IV START; Start 07/05/16 at 07:00; Stop 07/06/16 at 06:59; Status DC Levofloxacin/ Dextrose (LEVAQUIN 750mg PREMIX) 150 ml @ 100 mls/hr 1X PREOP PRN IV PRIOR TO PROCEDURE Last administered on 07/05/16 10:40; Start 07/05/16 at 06:00; Stop 07/05/16 at 18:00; Status DC Dexamethasone Sodium Phosphate (Decadron) 20 mg STK-MED ONCE .ROUTE ; Start at 08:53; Stop 07/05/16 at 08:54; Status DC Ondansetron HCl 4 mg 4 mg STK-MED ONCE .ROUTE ; Start 07/05/16 at 08:53; Stop at 08:54; Status DC Propofol (Diprivan) 20 ml @ As Directed STK-MED ONCE IV ; Start 07/05/16 at 08: 53; Stop 07/05/16 at 08:54; Status DC Lidocaine HCl 100 mg STK-MED ONCE .ROUTE ; Start 07/05/16 at 08:53; Stop at 08:54; Status DC Desflurane (Suprane) 90 ml STK-MED ONCE IH ; Start 07/05/16 at 08:53; Stop 07/05 at 08:54; Status DC Midazolam HCl (Versed) 2 mg STK-MED ONCE .ROUTE ; Start 07/05/16 at 08:53; Stop 07/05/16 at 08:54; Status DC Fentanyl Citrate (Fentanyl 2ml Vial) 100 mcg STK-MED ONCE .ROUTE ; Start at 08:53; Stop 07/05/16 at 08:54; Status DC Succinylcholine Chloride (Anectine) 200 mg STK-MED ONCE .ROUTE ; Start 07/05/16 at 08:53; Stop 07/05/16 at 08:54; Status DC Rocuronium [place] (Zemuron) 50 mg STK-MED ONCE .ROUTE ; Start 07/05/16 at 08:53 ; Stop 07/05/16 at 08:54; Status DC Hydromorphone HCl (Dilaudid) 2 mg STK-MED ONCE .ROUTE ; Start 07/05/16 at 09:51 ; Stop 07/05/16 at 09:52; Status DC Ketamine HCl 500 mg STK-MED ONCE .ROUTE ; Start 07/05/16 at 09:54; Stop at 09:55; Status DC Cellulose 1 each STK-MED ONCE .ROUTE ; Start 07/05/16 at 10:06; Stop 07/05/16 at 10:07; Status DC Bupivacaine HCl/ Epinephrine Bitart (Sensorcain-Mpf Epi 0.5%-1:[id number]) 30 ml STK -MED ONCE .ROUTE Last administered on 07/05/16 12:19; Start 07/05/16 at 10:07 ; Stop 07/05/16 at 10:08; Status DC Cellulose 1 each STK-MED ONCE .ROUTE ; Start 07/05/16 at 10:07; Stop 07/05/16 at 10:08; Status DC Ephedrine Sulfate 50 mg STK-MED ONCE IV ; Start 07/05/16 at 10:46; Stop at 10:47; Status DC Sugammadex Sodium (Bridion) 200 mg STK-MED ONCE IVP ; Start 07/05/16 at 12:22; Stop 07/05/16 at 12:23; Status DC Enoxaparin Sodium (Lovenox 40mg Syringe) 40 mg Q24H SQ Last administered on 08:45; Start 07/06/16 at 09:00 Sodium Chloride 3 ml 3 ml QSHIFT PRN IV AFTER MEDS AND BLOOD DRAWS; Start 07/05 at 13:00 Potassium Chloride/Dextrose/ Sod Cl 1,000 ml @ 100 mls/hr Q10H IV ; Start 07/05 at 12:55; Stop 07/05/16 at 13:04; Status DC Hydromorphone HCl (Dilaudid Standard SYRUP FILTERER) 30 ml @ 0 mls/hr CONT PRN PRN IV PROTOCOL Last administered on 07/05/16 14:47; Start 07/05/16 at 13:00; Stop at 23:42; Status DC Ondansetron HCl (Zofran) 4 mg PRN Q6HRS PRN IV NAUESA, 1ST CHOICE; Start at 13:00 Albuterol Sulfate (Ventolin Neb Soln) 2.5 mg PRN Q6HRS PRN NEB SHORTNESS OF BREATH; Start 07/05/16 at 13:30 Clobetasol Propionate (Temovate) 1 norma DAILY TP Last administered on 07/06/16 11:46; Start 07/06/16 at 09:00 Fluticasone Propionate (Flonase) 2 spray DAILY NS Last administered on 07:57; Start 07/06/16 at 09:00 Non-Formulary Medication 2 puff Q4HRS IH ; Start 07/05/16 at 16:00; Status UNV Non-Formulary Medication 2 puff BID IH ; Start 07/05/16 at 21:00; Status UNV Venlafaxine HCl 50 mg 50 mg TID PO Last administered on 07/05/16 20:43; Start 07/05/16 at 14:00; Stop 07/05/16 at 21:40; Status DC Sodium Chloride (Iv Sodium Chloride 0.45%) 1,000 ml @ 90 mls/hr Q11H7M IV Last administered on 07/06/16 03:59; Start 07/05/16 at 14:00 Albuterol Sulfate (Ventolin Neb Soln) 2.5 mg RTQID NEB Last administered on 07:12; Start 07/05/16 at 16:00 Budesonide (Pulmicort) 0.5 mg RTBID NEB Last administered on 07/07/16 07:12; Start 07/05/16 at 20:00 Hydromorphone HCl (Dilaudid) 2 mg STK-MED ONCE .ROUTE ; Start 07/05/16 at 13:32 ; Stop 07/05/16 at 13:33; Status DC Hydromorphone HCl (Dilaudid) 0.4 mg PRN Q10MIN PRN IV Moderate to severe pain Last administered on 07/05/16 15:33; Start 07/05/16 at 14:00; Stop 07/05/16 at 21:40; Status DC Meperidine HCl (Demerol) 12.5 mg PRN Q5MIN PRN IV SHIVERING; Start 07/05/16 at 14:00; Stop 07/06/16 at 13:59; Status UNV Diphenhydramine HCl (Benadryl) 12.5 mg PRN Q2HR PRN IV ITCHING Last administered on 07/05/16 19:34; Start 07/05/16 at 14:00; Stop 07/05/16 at 21:40 ; Status DC Diphenhydramine HCl (Benadryl) 12.5 mg PRN Q15MIN PRN IVP itching Last administered on 07/05/16 16:09; Start 07/05/16 at 15:45; Stop 07/05/16 at 21:40 ; Status DC Pneumococcal Polyvalent Vaccine (Do NOT chart on this placeholder) 1 each 1X ONCE MC ; Start 07/05/16 at 17:15; Stop 07/05/16 at 17:16; Status UNV Pneumococcal Polyvalent Vaccine (Pneumovax 23) 0.5 ml ONCE ONCE VAX IM Last administered on 07/06/16 08:43; Start 07/05/16 at 21:00; Stop 07/05/16 at 21:01 ; Status DC Epinephrine HCl (EpiPen) 0.3 mg PRN 1X PRN IM ANAPHYLAXIS; Start 07/05/16 at 21 :45 Venlafaxine HCl (Effexor) 150 mg BID PO ; Start 07/05/16 at 22:00; Stop at 08:02; Status DC Pantoprazole Sodium (Protonix Vial) 40 mg DAILYAC IVP Last administered on 07/06 07:52; Start 07/06/16 at 07:30; Stop 07/06/16 at 10:36; Status DC Diphenhydramine HCl (Benadryl) 25 mg PRN Q6HRS PRN IVP ITCHING; Start 07/05/16 at 21:45 Fentanyl Citrate (Fentanyl 2ml Vial) 25 mcg PRN Q2HR PRN IV PAIN Last administered on 07/06/16 06:01; Start 07/05/16 at 23:45 Oxycodone/ Acetaminophen (Percocet 5/325) 1 tab PRN Q4HRS PRN PO PAIN; Start at 07:30; Stop 07/06/16 at 10:36; Status DC Oxycodone/ Acetaminophen (Percocet 5/325) 2 tab PRN Q4HRS PRN PO PAIN Last administered on 07/06/16 07:55; Start 07/06/16 at 07:45; Stop 07/06/16 at 10:36 ; Status DC Non-Formulary Medication 2 ea DAILY PO Last administered on 07/06/16 08:23; Start 07/06/16 at 09:00 Oxycodone HCl 10 mg PRN Q4HRS PRN PO PAIN Last administered on 07/06/16 11:48 ; Start 07/06/16 at 10:45; Stop 07/06/16 at 16:12; Status DC Non-Formulary Medication 1 ea DAILY PO Last administered on 07/06/16 16:15; Start 07/06/16 at 12:30 Oxycodone HCl 10 mg PRN Q3HRS PRN PO PAIN Last administered on 07/07/16 03:26 ; Start 07/06/16 at 16:15 Active Scripts Active Reported [sodium oxybate] Metformin Hcl 500 Mg Tablet 1 Tab PO BID Lantus Solostar (Insulin Glargine,Hum.rec.anlog) 100 Unit/1 Ml Insuln.pen 0 SQ Dulera 200 Mcg/5 Mcg Inhaler (Mometasone/Formoterol) 13 Gm Hfa.aer.ad 2 Puff IH BID Proair Hfa Inhaler (Albuterol Sulfate) 8.5 Gm Hfa.aer.ad 1 Puff INH PRN Q6HRS PRN Metformin Hcl 500 Mg Tablet 1 Tab PO BID Clobetasol Propionate 15 Gm Cream..g. 0.05 % TP DAILY Xopenex Hfa (Levalbuterol Tartrate) 15 Gm Hfa.aer.ad 2 Puff IH Q4HRS Flonase Allergy Relief (Fluticasone Propionate) 9.9 Ml [place].susp 1 Sprays NS DAILY Nexium Capsule (Esomeprazole Magnesium) 40 Mg Capsule.dr 1 Cap PO BID Zofran Odt (Ondansetron) 8 Mg Tab.rapdis 1 Tab PO PRN PRN 1-2 TABLET Silvadene (Silver Sulfadiazine) 20 Gm Cream..g. 1 % TP BID Acyclovir 800 Mg Tablet 1 Tab PO PRN DAILY PRN Effexor Xr (Venlafaxine Hcl) 75 Mg Cap.er.24h 150 Mg PO DAILY07 Linzess (Linaclotide) 145 Mcg Capsule 145 Mcg PO DAILYAC Epipen 2-Isidro (Epinephrine) 0.3 Mg/0.3 Ml Auto.injct 0.3 Mg IJ PRN 1X PRN Vitals/I & O Vital Sign - Last 24 Hours 07/06/16 07/06/16 07/06/16 07/06/16 10:45 11:30 11:48 15:00 Temp 99.1 98.6 99.1 98.6 Pulse 84 69 Resp 16 20 20 B/P 96/73 130/82 Pulse Ox 95 95 95 O2 Delivery Room Air Room Air Room Air Room Air 07/06/16 07/06/16 07/06/16 07/06/16 16:06 18:15 19:45 20:15 Temp 98.3 98.8 98.3 98.8 Pulse 77 74 Resp 20 18 B/P 109/81 122/78 Pulse Ox 95 93 90 O2 Delivery Room Air Room Air Room Air Bi-pap O2 Flow Rate 4.0 07/06/16 07/06/16 07/06/16 07/07/16 20:20 20:47 23:10 03:15 Temp 98.6 98.5 98.6 98.5 Pulse 75 74 Resp 20 20 20 B/P 118/75 125/80 Pulse Ox 92 95 97 95 O2 Delivery Room Air BiPAP/CPAP BiPAP/CPAP BiPAP/CPAP O2 Flow Rate 5.0 07/07/16 07/07/16 07/07/16 07/07/16 03:26 04:30 06:54 07:14 Temp 98.9 98.9 Pulse 74 Resp 20 20 20 B/P 117/79 Pulse Ox 95 94 95 96 O2 Delivery BiPAP/CPAP BiPAP/CPAP BiPAP/CPAP Room Air Intake and Output 07/06/16 07/06/16 07/07/16 14:59 22:59 06:59 Intake Total 2150 ml 1290 ml 200 ml Output Total 700 ml 725 ml 550 ml Balance 1450 ml 565 ml -350 ml NEAL PITTMAN MD Jul 07, 2016 08:05
[2016-07-07] MEDS: LINZESS 290 MCG PO SCH (08:16)
[2016-07-07] MEDS: FLUTICASONE 50MCG/NASAL SPRAY 16GM BOTTLE. NS SCH (08:16)
[2016-07-07] MEDS: NON FORMULARY ITEM PO SCH (08:17)
[2016-07-07] MEDS: CLOBETASOL EMOLLIENT 0.05% TOPICAL CREAM 15GM TUBE. TP SCH (08:18)
[2016-07-07] MEDS: ENOXAPARIN 40 MG/0.4 ML DISP.SYRIN. SQ SCH (08:18)
[2016-07-07] MEDS: IV 1/2 NORMAL SALINE 1,000 ML IV SCH ×2 (10:28→21:35)
--- NOTE | 2016-07-07 12:25 | PDOC ---
PROGRESS NOTES Chief Complaint Chief Complaint Severe GERD Torin fundo redo ASSESSMENT AND PLAN: 1. GERD: s/p redo of Torin fundoplication on 07/[address] Bishop. no apparent complications 2. Pain control: dilaudid causing severe pruritus, fentanyl insufficient. liquid oxy works well, but not long enough. decrease interval to q3h PRN 3. Constipation: chronic issue. suspect component of narcotic ASE. give relistor x1 3. Nutrition: tolerating full liquids. advance to mechanically soft 4. Asthma: no acute issues. has extensive home regimen. nebs PRN 5. Narcolepsy: on BiPAP at night; has own appliance. venlafaxine 300 qAM 6. DM: home metformin currently on hold with limited PO calorie intake. cover w/ ISS 7. Prophylaxis: lovenox. PPI stopped by surgery 8. Dispo: home in AM with services (not eligible for acute rehab) Vitals Vitals Vital Signs Date Time Temp Pulse Resp B/P Pulse Ox O2 Delivery O2 Flow Rate FiO2 07/07/16 11:12 93 Room Air 07/07/16 09:20 16 07/07/16 06:54 98.9 74 117/79 98.9 07/06/16 20:47 5.0 Physical Exam General: Alert, Oriented X3, Cooperative, No acute distress Heart: Regular rate Lungs: Clear Abdomen: Normal bowel sounds, Soft, Other (lap port sites C/D/I, covered with steri strips) Extremities: No edema, Other (L AKA) Labs LABS Laboratory Tests Test 07/07/16 07:10 White Blood Count 10.5x10^3/uL (4.0-11.0) Red Blood Count 3.20x10^6/uL (3.50-5.40) Hemoglobin 10.0g/dL (12.0-15.5) Hematocrit 30.2% (36.0-47.0) Mean Corpuscular Volume 94fL (79-100) Mean Corpuscular Hemoglobin 31pg (25-35) Mean Corpuscular Hemoglobin Concent 33g/dL (31-37) Red Cell Distribution Width 15.0% (11.5-14.5) Platelet Count 313x10^3/uL (140-400) Neutrophils (%) (Auto) 50% (31-73) Lymphocytes (%) (Auto) 34% (24-48) Monocytes (%) (Auto) 10% (0-9) Eosinophils (%) (Auto) 4% (0-3) Basophils (%) (Auto) 1% (0-3) Neutrophils # (Auto) 5.2x10^3uL (1.8-7.7) Lymphocytes # (Auto) 3.6x10^3/uL (1.0-4.8) Monocytes # (Auto) 1.1x10^3/uL (0.0-1.1) Eosinophils # (Auto) 0.5x10^3/uL (0.0-0.7) Basophils # (Auto) 0.1x10^3/uL (0.0-0.2) Sodium Level 146mmol/L (136-145) Potassium Level 3.9mmol/L (3.5-5.1) Chloride Level 110mmol/L (98-107) Carbon Dioxide Level 28mmol/L (21-32) Anion Gap 8 (6-14) Blood Urea Nitrogen 9mg/dL (7-20) Creatinine 0.7mg/dL (0.6-1.0) Estimated GFR (Cockcroft-Gault) 86.6 BUN/Creatinine Ratio 13 (6-20) Glucose Level 82mg/dL (70-99) Calcium Level 8.4mg/dL (8.5-10.1) Total Bilirubin 0.3mg/dL (0.2-1.0) Aspartate Amino Transf (AST/SGOT) 33U/L (15-37) Alanine Aminotransferase (ALT/SGPT) 33U/L (14-59) Alkaline Phosphatase 65U/L (46-116) Total Protein 5.7g/dL (6.4-8.2) Albumin 2.8g/dL (3.4-5.0) Albumin/Globulin Ratio 1.0 (1.0-1.7) Review of Systems Review of Systems RLQ pain/ diffuse abd pain. no BM in [facility] IMCHELL MOREAU MD Jul 07, 2016 12:25
[2016-07-07] MEDS ORDERED: METHYLNALTREXONE 12 MG/0.6 ML VIAL. SQ ONE (12:30)
[2016-07-07 15:20] VITALS: BP 126/86
[2016-07-07] MEDS: LACTULOSE 20 GM/30 ML SOLUTION. PO PRN ×2 (18:25→20:26)
[2016-07-07] MEDS: TRAMADOL 50 MG TABLET. PO PRN (18:28)
[2016-07-07] MEDS: ACETAMINOPHEN 325 MG TABLET. PO PRN (18:28)
[2016-07-07 19:00] VITALS: BP 102/71
[2016-07-07] MEDS ORDERED: DOCUSATE SODIUM 100 MG CAPSULE PO PRN (22:45)
[2016-07-07] MEDS ORDERED: MAGNESIUM HYDROXIDE 2,400 MG/30 ML ORAL.SUSP. PO PRN (22:45)
[2016-07-07] MEDS ORDERED: POLYETHYLENE GLYCOL 3350 17 GM PACKET. PO PRN (22:45)
[2016-07-07] MEDS ORDERED: POLYETHYLENE GLYCOL 3350 17 GM PACKET. PO ONE (23:00)
[2016-07-07 23:09] VITALS: BP 132/82
[2016-07-08] MEDS: LINACLOTIDE 145 MCG CAPSULE. PO SCH ×2 (00:35→07:04)
[2016-07-08] MEDS: OXYCODONE 5 MG/5 ML ORAL SOLUTION. PO PRN ×5 (00:42→16:00)
[2016-07-08 03:02] VITALS: BP 121/78
[2016-07-08] MEDS: ALBUTEROL SULFATE 2.5 MG/3 ML NEBU. NEB SCH ×3 (06:54→14:40)
[2016-07-08] MEDS: BUDESONIDE 0.5 MG/2 ML NEBU NEB SCH (06:54)
[2016-07-08 07:01] VITALS: BP 113/69
[2016-07-08] MEDS: FLUTICASONE 50MCG/NASAL SPRAY 16GM BOTTLE. NS SCH (08:11)
[2016-07-08] MEDS: ENOXAPARIN 40 MG/0.4 ML DISP.SYRIN. SQ SCH (08:12)
[2016-07-08] MEDS: NON FORMULARY ITEM PO SCH (08:12)
[2016-07-08] MEDS: CLOBETASOL EMOLLIENT 0.05% TOPICAL CREAM 15GM TUBE. TP SCH (08:13)
[2016-07-08] MEDS: ACETAMINOPHEN 325 MG TABLET. PO PRN (08:24)
[2016-07-08] MEDS: TRAMADOL 50 MG TABLET. PO PRN (08:24)
[2016-07-08] MEDS: IV 1/2 NORMAL SALINE 1,000 ML IV SCH (08:42)
[2016-07-08] MEDS ORDERED: DOCUSATE SODIUM 100 MG CAPSULE PO SCH (09:00)
--- NOTE | 2016-07-08 09:07 | PDOC ---
URIAH BURK BLEACHER LARD 07/08/16 0907: SURGICAL PROGRESS NOTE Subjective main complaint is constipation burning to incisions from tape Vital Signs Vital Signs Date Time Temp Pulse Resp B/P Pulse Ox O2 Delivery O2 Flow Rate FiO2 07/08/16 08:24 Room Air 07/08/16 07:06 20 93 07/08/16 07:01 97.8 71 113/69 97.8 07/07/16 19:00 92.0 I&O Intake and Output 07/08/16 07:00 Intake Total 1930 ml Output Total 1000 ml Balance 930 ml Intake Oral 1930 ml Output Urine Total 1000 ml # Voids 5 General: Alert, Oriented X3, Cooperative, No acute distress Abdomen: Soft, Other (lap sites, erythema from tape, no signs of infection) Labs Laboratory Tests Test 07/07/16 07:10 White Blood Count 10.5x10^3/uL (4.0-11.0) Red Blood Count 3.20x10^6/uL (3.50-5.40) Hemoglobin 10.0g/dL (12.0-15.5) Hematocrit 30.2% (36.0-47.0) Mean Corpuscular Volume 94fL (79-100) Mean Corpuscular Hemoglobin 31pg (25-35) Mean Corpuscular Hemoglobin Concent 33g/dL (31-37) Red Cell Distribution Width 15.0% (11.5-14.5) Platelet Count 313x10^3/uL (140-400) Neutrophils (%) (Auto) 50% (31-73) Lymphocytes (%) (Auto) 34% (24-48) Monocytes (%) (Auto) 10% (0-9) Eosinophils (%) (Auto) 4% (0-3) Basophils (%) (Auto) 1% (0-3) Neutrophils # (Auto) 5.2x10^3uL (1.8-7.7) Lymphocytes # (Auto) 3.6x10^3/uL (1.0-4.8) Monocytes # (Auto) 1.1x10^3/uL (0.0-1.1) Eosinophils # (Auto) 0.5x10^3/uL (0.0-0.7) Basophils # (Auto) 0.1x10^3/uL (0.0-0.2) Sodium Level 146mmol/L (136-145) Potassium Level 3.9mmol/L (3.5-5.1) Chloride Level 110mmol/L (98-107) Carbon Dioxide Level 28mmol/L (21-32) Anion Gap 8 (6-14) Blood Urea Nitrogen 9mg/dL (7-20) Creatinine 0.7mg/dL (0.6-1.0) Estimated GFR (Cockcroft-Gault) 86.6 BUN/Creatinine Ratio 13 (6-20) Glucose Level 82mg/dL (70-99) Calcium Level 8.4mg/dL (8.5-10.1) Total Bilirubin 0.3mg/dL (0.2-1.0) Aspartate Amino Transf (AST/SGOT) 33U/L (15-37) Alanine Aminotransferase (ALT/SGPT) 33U/L (14-59) Alkaline Phosphatase 65U/L (46-116) Total Protein 5.7g/dL (6.4-8.2) Albumin 2.8g/dL (3.4-5.0) Albumin/Globulin Ratio 1.0 (1.0-1.7) Problem List Problems Medical Problems: (1) GERD (gastroesophageal reflux disease) Status: Acute Assessment/Plan s/p redo gavin fundoplication full liquid diet x 2 weeks postop await for DC plans HH vs rehab she is on multiple laxatives Problems: NEAL PITTMAN MD 07/08/16 1119: SURGICAL PROGRESS NOTE Assessment/Plan Reviewed, agree with above, planning discharge Problems: URIAH BURK APRN Jul 08, 2016 09:07 NEAL PITTMAN MD Jul 08, 2016 11:19
[2016-07-08] MEDS ORDERED: OXYC5SOL PO (10:38)
--- NOTE | 2016-07-08 10:41 | PDOC ---
PROGRESS NOTES Chief Complaint Chief Complaint Severe GERD Torin fundo redo ASSESSMENT AND PLAN: 1. GERD: s/p redo of Torin fundoplication on 07/[address] Bishop. no apparent complications 2. Pain control: dilaudid causing severe pruritus, fentanyl insufficient. liquid oxy works well, but not long enough. decrease interval to q3h PRN 3. Constipation: chronic issue. suspect component of narcotic ASE. relistor trial unsuccessful. lactulose likewise. trial MO enema 3. Nutrition: tolerating full liquids. advance to mechanically soft 4. Asthma: no acute issues. has extensive home regimen. nebs PRN 5. Narcolepsy: on BiPAP at night; has own appliance. venlafaxine 300 qAM 6. DM: home metformin currently on hold with limited PO calorie intake. cover w/ ISS 7. Prophylaxis: lovenox. PPI stopped by surgery 8. Dispo: home in AM with services; awaiting appeal for acute rehab Vitals Vitals Vital Signs Date Time Temp Pulse Resp B/P Pulse Ox O2 Delivery O2 Flow Rate FiO2 07/08/16 08:24 Room Air 07/08/16 07:45 92.0 07/08/16 07:06 20 93 07/08/16 07:01 97.8 71 113/69 97.8 Physical Exam General: Alert, Oriented X3, Cooperative, No acute distress Heart: Regular rate Lungs: Clear Abdomen: Soft, Other (lap sites, erythema from tape, no signs of infection) Extremities: No edema, Other (L AKA) Skin: Other (erythema and tiny blisters surrounding Lap port sites, c/w latex allergy) Review of Systems Review of Systems feels bloated. no BM for 1 week+. Comment Review of Relevant I have reviewed the following items sparkle (where applicable) has been applied. Labs Laboratory Tests Test 07/07/16 07:10 White Blood Count 10.5x10^3/uL (4.0-11.0) Red Blood Count 3.20x10^6/uL (3.50-5.40) Hemoglobin 10.0g/dL (12.0-15.5) Hematocrit 30.2% (36.0-47.0) Mean Corpuscular Volume 94fL (79-100) Mean Corpuscular Hemoglobin 31pg (25-35) Mean Corpuscular Hemoglobin Concent 33g/dL (31-37) Red Cell Distribution Width 15.0% (11.5-14.5) Platelet Count 313x10^3/uL (140-400) Neutrophils (%) (Auto) 50% (31-73) Lymphocytes (%) (Auto) 34% (24-48) Monocytes (%) (Auto) 10% (0-9) Eosinophils (%) (Auto) 4% (0-3) Basophils (%) (Auto) 1% (0-3) Neutrophils # (Auto) 5.2x10^3uL (1.8-7.7) Lymphocytes # (Auto) 3.6x10^3/uL (1.0-4.8) Monocytes # (Auto) 1.1x10^3/uL (0.0-1.1) Eosinophils # (Auto) 0.5x10^3/uL (0.0-0.7) Basophils # (Auto) 0.1x10^3/uL (0.0-0.2) Sodium Level 146mmol/L (136-145) Potassium Level 3.9mmol/L (3.5-5.1) Chloride Level 110mmol/L (98-107) Carbon Dioxide Level 28mmol/L (21-32) Anion Gap 8 (6-14) Blood Urea Nitrogen 9mg/dL (7-20) Creatinine 0.7mg/dL (0.6-1.0) Estimated GFR (Cockcroft-Gault) 86.6 BUN/Creatinine Ratio 13 (6-20) Glucose Level 82mg/dL (70-99) Calcium Level 8.4mg/dL (8.5-10.1) Total Bilirubin 0.3mg/dL (0.2-1.0) Aspartate Amino Transf (AST/SGOT) 33U/L (15-37) Alanine Aminotransferase (ALT/SGPT) 33U/L (14-59) Alkaline Phosphatase 65U/L (46-116) Total Protein 5.7g/dL (6.4-8.2) Albumin 2.8g/dL (3.4-5.0) Albumin/Globulin Ratio 1.0 (1.0-1.7) Medications Current Medications Ondansetron HCl 4 mg 4 mg PRN Q6HRS PRN IV Nausea; Start 07/05/16 at 07:00; Stop 07/06/16 at 06:59; Status DC Lactated Ringer's (Iv Lactated Ringers) 1,000 ml @ 0 mls/hr Q0M IV Last administered on 07/05/16 08:39; Start 07/05/16 at 07:00; Stop 07/05/16 at 18:59 ; Status DC Lidocaine HCl 2 ml 2 ml 1X PRN PRN ID IV START; Start 07/05/16 at 07:00; Stop 07/06/16 at 06:59; Status DC Levofloxacin/ Dextrose (LEVAQUIN 750mg PREMIX) 150 ml @ 100 mls/hr 1X PREOP PRN IV PRIOR TO PROCEDURE Last administered on 07/05/16 10:40; Start 07/05/16 at 06:00; Stop 07/05/16 at 18:00; Status DC Dexamethasone Sodium Phosphate (Decadron) 20 mg STK-MED ONCE .ROUTE ; Start at 08:53; Stop 07/05/16 at 08:54; Status DC Ondansetron HCl 4 mg 4 mg STK-MED ONCE .ROUTE ; Start 07/05/16 at 08:53; Stop at 08:54; Status DC Propofol (Diprivan) 20 ml @ As Directed STK-MED ONCE IV ; Start 07/05/16 at 08: 53; Stop 07/05/16 at 08:54; Status DC Lidocaine HCl 100 mg STK-MED ONCE .ROUTE ; Start 07/05/16 at 08:53; Stop at 08:54; Status DC Desflurane (Suprane) 90 ml STK-MED ONCE IH ; Start 07/05/16 at 08:53; Stop 07/05 at 08:54; Status DC Midazolam HCl (Versed) 2 mg STK-MED ONCE .ROUTE ; Start 07/05/16 at 08:53; Stop 07/05/16 at 08:54; Status DC Fentanyl Citrate (Fentanyl 2ml Vial) 100 mcg STK-MED ONCE .ROUTE ; Start at 08:53; Stop 07/05/16 at 08:54; Status DC Succinylcholine Chloride (Anectine) 200 mg STK-MED ONCE .ROUTE ; Start 07/05/16 at 08:53; Stop 07/05/16 at 08:54; Status DC Rocuronium [place] (Zemuron) 50 mg STK-MED ONCE .ROUTE ; Start 07/05/16 at 08:53 ; Stop 07/05/16 at 08:54; Status DC Hydromorphone HCl (Dilaudid) 2 mg STK-MED ONCE .ROUTE ; Start 07/05/16 at 09:51 ; Stop 07/05/16 at 09:52; Status DC Ketamine HCl 500 mg STK-MED ONCE .ROUTE ; Start 07/05/16 at 09:54; Stop at 09:55; Status DC Cellulose 1 each STK-MED ONCE .ROUTE ; Start 07/05/16 at 10:06; Stop 07/05/16 at 10:07; Status DC Bupivacaine HCl/ Epinephrine Bitart (Sensorcain-Mpf Epi 0.5%-[id number]) 30 ml STK -MED ONCE .ROUTE Last administered on 07/05/16 12:19; Start 07/05/16 at 10:07 ; Stop 07/05/16 at 10:08; Status DC Cellulose 1 each STK-MED ONCE .ROUTE ; Start 07/05/16 at 10:07; Stop 07/05/16 at 10:08; Status DC Ephedrine Sulfate 50 mg STK-MED ONCE IV ; Start 07/05/16 at 10:46; Stop at 10:47; Status DC Sugammadex Sodium (Bridion) 200 mg STK-MED ONCE IVP ; Start 07/05/16 at 12:22; Stop 07/05/16 at 12:23; Status DC Enoxaparin Sodium (Lovenox 40mg Syringe) 40 mg Q24H SQ Last administered on t 08:12; Start 07/06/16 at 09:00 Sodium Chloride 3 ml 3 ml QSHIFT PRN IV AFTER MEDS AND BLOOD DRAWS; Start 07/05 at 13:00 Potassium Chloride/Dextrose/ Sod Cl 1,000 ml @ 100 mls/hr Q10H IV ; Start 07/05 at 12:55; Stop 07/05/16 at 13:04; Status DC Hydromorphone HCl (Dilaudid Standard [employer]) 30 ml @ 0 mls/hr CONT PRN PRN IV PROTOCOL Last administered on 07/05/16 14:47; Start 07/05/16 at 13:00; Stop at 23:42; Status DC Ondansetron HCl (Zofran) 4 mg PRN Q6HRS PRN IV NAUESA, 1ST CHOICE; Start at 13:00 Albuterol Sulfate (Ventolin Neb Soln) 2.5 mg PRN Q6HRS PRN NEB SHORTNESS OF BREATH; Start 07/05/16 at 13:30 Clobetasol Propionate (Temovate) 1 norma DAILY TP Last administered on 07/08/16 08:13; Start 07/06/16 at 09:00 Fluticasone Propionate (Flonase) 2 spray DAILY NS Last administered on 08:11; Start 07/06/16 at 09:00 Non-Formulary Medication 2 puff Q4HRS IH ; Start 07/05/16 at 16:00; Status UNV Non-Formulary Medication 2 puff BID IH ; Start 07/05/16 at 21:00; Status UNV Venlafaxine HCl 50 mg 50 mg TID PO Last administered on 07/05/16 20:43; Start 07/05/16 at 14:00; Stop 07/05/16 at 21:40; Status DC Sodium Chloride (Iv Sodium Chloride 0.45%) 1,000 ml @ 90 mls/hr Q11H7M IV Last administered on 07/06/16 03:59; Start 07/05/16 at 14:00 Albuterol Sulfate (Ventolin Neb Soln) 2.5 mg RTQID NEB Last administered on 06:54; Start 07/05/16 at 16:00 Budesonide (Pulmicort) 0.5 mg RTBID NEB Last administered on 07/08/16 06:54; Start 07/05/16 at 20:00 Hydromorphone HCl (Dilaudid) 2 mg STK-MED ONCE .ROUTE ; Start 07/05/16 at 13:32 ; Stop 07/05/16 at 13:33; Status DC Hydromorphone HCl (Dilaudid) 0.4 mg PRN Q10MIN PRN IV Moderate to severe pain Last administered on 07/05/16 15:33; Start 07/05/16 at 14:00; Stop 07/05/16 at 21:40; Status DC Meperidine HCl (Demerol) 12.5 mg PRN Q5MIN PRN IV SHIVERING; Start 07/05/16 at 14:00; Stop 07/06/16 at 13:59; Status UNV Diphenhydramine HCl (Benadryl) 12.5 mg PRN Q2HR PRN IV ITCHING Last administered on 07/05/16 19:34; Start 07/05/16 at 14:00; Stop 07/05/16 at 21:40 ; Status DC Diphenhydramine HCl (Benadryl) 12.5 mg PRN Q15MIN PRN IVP itching Last administered on 07/05/16 16:09; Start 07/05/16 at 15:45; Stop 07/05/16 at 21:40 ; Status DC Pneumococcal Polyvalent Vaccine (Do NOT chart on this placeholder) 1 each 1X ONCE MC ; Start 07/05/16 at 17:15; Stop 07/05/16 at 17:16; Status UNV Pneumococcal Polyvalent Vaccine (Pneumovax 23) 0.5 ml ONCE ONCE VAX IM Last administered on 07/06/16 08:43; Start 07/05/16 at 21:00; Stop 07/05/16 at 21:01 ; Status DC Epinephrine HCl (EpiPen) 0.3 mg PRN 1X PRN IM ANAPHYLAXIS; Start 07/05/16 at 21 :45 Venlafaxine HCl (Effexor) 150 mg BID PO ; Start 07/05/16 at 22:00; Stop at 08:02; Status DC Pantoprazole Sodium (Protonix Vial) 40 mg DAILYAC IVP Last administered on 07/06 07:52; Start 07/06/16 at 07:30; Stop 07/06/16 at 10:36; Status DC Diphenhydramine HCl (Benadryl) 25 mg PRN Q6HRS PRN IVP ITCHING; Start 07/05/16 at 21:45 Fentanyl Citrate (Fentanyl 2ml Vial) 25 mcg PRN Q2HR PRN IV PAIN Last administered on 07/06/16 06:01; Start 07/05/16 at 23:45 Oxycodone/ Acetaminophen (Percocet 5/325) 1 tab PRN Q4HRS PRN PO PAIN; Start at 07:30; Stop 07/06/16 at 10:36; Status DC Oxycodone/ Acetaminophen (Percocet 5/325) 2 tab PRN Q4HRS PRN PO PAIN Last administered on 07/06/16 07:55; Start 07/06/16 at 07:45; Stop 07/06/16 at 10:36 ; Status DC Non-Formulary Medication 2 ea DAILY PO Last administered on 07/08/16 08:12; Start 07/06/16 at 09:00 Oxycodone HCl 10 mg PRN Q4HRS PRN PO PAIN Last administered on 07/06/16 11:48 ; Start 07/06/16 at 10:45; Stop 07/06/16 at 16:12; Status DC Non-Formulary Medication 1 ea DAILY PO Last administered on 07/07/16 08:16; Start 07/06/16 at 12:30; Stop 07/08/16 at 00:18; Status DC Oxycodone HCl 10 mg PRN Q3HRS PRN PO PAIN Last administered on 07/08/16 07:06 ; Start 07/06/16 at 16:15 Methylnaltrexone [place] (Relistor) 12 mg 1X ONCE SQ Last administered on 07/07 13:35; Start 07/07/16 at 12:30; Stop 07/07/16 at 12:31; Status DC Tramadol HCl (Ultram) 50 mg Q6HRS PRN PO PAIN Last administered on 07/08/16 08 :24; Start 07/07/16 at 14:30 Acetaminophen (Tylenol) 325 mg PRN Q6HRS PRN PO MILD PAIN / TEMP Last administered on 07/08/16 08:24; Start 07/07/16 at 14:30 Lactulose 1 gm PRN DAILY PRN PO CONSTIPATION Last administered on 07/07/16 20: 26; Start 07/07/16 at 17:00 Docusate Sodium (Colace) 100 mg PRN DAILY PRN PO CONSTIPATION Last administered on 07/07/16 23:48; Start 07/07/16 at 22:45 Docusate Sodium (Colace) 100 mg DAILY PO Last administered on 07/08/16 08:10; Start 07/08/16 at 09:00 Polyethylene Glycol (miraLAX PACKET) 17 gm PRN DAILY PRN PO CONSTIPATION; Start 07/07/16 at 22:45 Polyethylene Glycol (miraLAX PACKET) 17 gm 1X ONCE PO Last administered on 23:53; Start 07/07/16 at 23:00; Stop 07/07/16 at 23:01; Status DC Magnesium Hydroxide (Milk Of Magnesia) 2,400 mg PRN DAILY PRN PO CONSTIPATION Last administered on 07/07/16 23:49; Start 07/07/16 at 22:45 Linaclotide (Linzess) 145 mcg DAILY07 PO Last administered on 07/08/16 07:04; Start 07/07/16 at 23:15 Active Scripts Active Reported [sodium oxybate] Metformin Hcl 500 Mg Tablet 1 Tab PO BID Lantus Solostar (Insulin Glargine,Hum.rec.anlog) 100 Unit/1 Ml Insuln.pen 0 SQ Dulera 200 Mcg/5 Mcg Inhaler (Mometasone/Formoterol) 13 Gm Hfa.aer.ad 2 Puff IH BID Proair Hfa Inhaler (Albuterol Sulfate) 8.5 Gm Hfa.aer.ad 1 Puff INH PRN Q6HRS PRN Metformin Hcl 500 Mg Tablet 1 Tab PO BID Clobetasol Propionate 15 Gm Cream..g. 0.05 % TP DAILY Xopenex Hfa (Levalbuterol Tartrate) 15 Gm Hfa.aer.ad 2 Puff IH Q4HRS Flonase Allergy Relief (Fluticasone Propionate) 9.9 Ml [place].susp 1 Sprays NS DAILY Nexium Capsule (Esomeprazole Magnesium) 40 Mg Capsule.dr 1 Cap PO BID Zofran Odt (Ondansetron) 8 Mg Tab.rapdis 1 Tab PO PRN PRN 1-2 TABLET Silvadene (Silver Sulfadiazine) 20 Gm Cream..g. 1 % TP BID Acyclovir 800 Mg Tablet 1 Tab PO PRN DAILY PRN Effexor Xr (Venlafaxine Hcl) 75 Mg Cap.er.24h 150 Mg PO DAILY07 Linzess (Linaclotide) 145 Mcg Capsule 145 Mcg PO DAILYAC Epipen 2-Isidro (Epinephrine) 0.3 Mg/0.3 Ml Auto.injct 0.3 Mg IJ PRN 1X PRN Vitals/I & O Vital Sign - Last 24 Hours 07/07/16 07/07/16 07/07/16 07/07/16 11:12 15:17 15:20 15:43 Temp 97.9 97.9 Pulse 76 Resp 18 B/P 126/86 Pulse Ox 93 99 94 O2 Delivery Room Air Room Air Room Air 07/07/16 07/07/16 07/07/16 07/07/16 18:28 18:58 19:00 19:30 Temp 98.3 98.3 Pulse 77 Resp 18 20 20 B/P 102/71 Pulse Ox 96 92 O2 Delivery Room Air Room Air Room Air Room Air O2 Flow Rate 92.0 07/07/16 07/07/16 07/07/16 07/08/16 20:30 20:32 23:09 00:42 Temp 97.7 97.7 Pulse 73 Resp 20 20 20 B/P 132/82 Pulse Ox 92 92 93 O2 Delivery Room Air Room Air Room Air Room Air 07/08/16 07/08/16 07/08/16 07/08/16 03:02 03:54 05:00 06:57 Temp 98.1 98.1 Pulse 73 Resp 20 20 20 B/P 121/78 Pulse Ox 90 93 93 95 O2 Delivery Room Air Room Air 07/08/16 07/08/16 07/08/16 07/08/16 07:01 07:06 07:45 08:06 Temp 97.8 97.8 Pulse 71 Resp 18 20 B/P 113/69 Pulse Ox 92 93 O2 Delivery Room Air Room Air Room Air Room Air O2 Flow Rate 92.0 07/08/16 08:24 O2 Delivery Room Air Intake and Output 07/07/16 07/07/16 07/08/16 15:00 23:00 07:00 Intake Total 380 ml 600 ml 950 ml Output Total 1000 ml Balance 380 ml -400 ml 950 ml MICHELL MOREAU MD Jul 08, 2016 10:41
[2016-07-08] MEDS ORDERED: MINERAL OIL 133 ML ENEMA. PR ONE (10:45)
[2016-07-08 11:15] VITALS: BP 122/81
[2016-07-08] MEDS ORDERED: LACTULOSE 20 GM/30 ML SOLUTION. PO PRN (13:27)
[2016-07-08 15:15] VITALS: BP 123/89
[2016-07-08] MEDS ORDERED: OXYC10TA PO (15:45)
--- NOTE | 2016-07-11 01:33 | DS ---
DATE OF DISCHARGE: 07/08/2016 CHIEF COMPLAINT: Severe GERD and admission for Torin fundoplication redo. HOSPITAL COURSE: The patient is a 55-year-old woman with severe GERD for which she had undergone a Torin fundoplication several years ago. Symptoms had recurred and she was now admitted for elective redo of her previous Torin fundoplication. This was undertaken by Dr. Bishop on 07/05/2016 without any complications. Pain control was achieved with IV medications, somewhat difficult due to multiple allergies and preferences of the patient. She was continued on all her home medications including BiPAP for narcolepsy. She was discharged to home with services, although her preference has been to acute rehab. However, acceptance had not been obtained through the insurance. DISCHARGE PHYSICAL EXAMINATION: Please refer to note from same day. DISCHARGE DATE: 07/08/2016 DISCHARGE DISPOSITION: Home with services. DISCHARGE CONDITION: Improved. DISCHARGE DIAGNOSIS: Severe gastroesophageal reflux disease, status post fundoplication redo on 07/05/[address] Bishop. DISCHARGE MEDICATIONS: Please refer to MAR. DISCHARGE INSTRUCTIONS: The patient will follow up with Dr. Bishop in 10-14 days. Greater than 30 minutes were spent in arranging discharge. MICHELL MOREAU MD DR: UR/nts JOB#: [id number] / [id number] NICHOLAS Argueta MD
== END 2016-07-08 16:45 | disposition home or self-care (01) | DRG 327 ==
LOC: SURG 07:57 → 4 SOUTHEST 13:11
PROVIDERS: ADMIT Surgery; ATTEND Surgery
PROC: 0DV44ZZ Restriction of Esophagogastric Junction, Percutaneous Endoscopic Approach (ICD-10-PCS; principal; 2016-07-05 09:30)
PROC: 5A09457 Assistance with Respiratory Ventilation, 24-96 Consecutive Hours, Continuous Positive Airway Pressure (ICD-10-PCS; 2016-07-07)
DX: K21.9 Gastro-esophageal reflux disease without esophagitis (principal); E44.0 Moderate protein-calorie malnutrition; E11.9 Type 2 diabetes mellitus without complications; G14 Postpolio syndrome; G47.411 Narcolepsy with cataplexy; J45.909 Unspecified asthma, uncomplicated; K58.9 Irritable bowel syndrome, unspecified; K66.0 Peritoneal adhesions (postprocedural) (postinfection); K66.8 Other specified disorders of peritoneum; Z86.718 Personal history of other venous thrombosis and embolism; Z87.442 Personal history of urinary calculi; Z88.6 Allergy status to analgesic agent; Z88.1 Allergy status to other antibiotic agents; Z79.4 Long term (current) use of insulin; Z90.49 Acquired absence of other specified parts of digestive tract; Z90.722 Acquired absence of ovaries, bilateral; Z90.710 Acquired absence of both cervix and uterus; Z90.81 Acquired absence of spleen; Z91.011 Allergy to milk products; Z88.8 Allergy status to other drugs, medicaments and biological substances; Z91.048 Other nonmedicinal substance allergy status; Z88.5 Allergy status to narcotic agent; Z89.619 Acquired absence of unspecified leg above knee; Z98.1 Arthrodesis status; Z68.29 Body mass index [BMI] 29.0-29.9, adult; Z79.899 Other long term (current) drug therapy
CPT/HCPCS: 36415; 80053; 85027; 90732; 94250; 94640; 94760; C1769; C9113; J0330; J1100; J1170; J1200; J1650; J1956; J2212; J2250; J2405; J2704; J3010; J3490; J7030; J7120; 97110; 97116

== ENCOUNTER → 2016-07-22 | Outpatient (CLI) | payer OTHER ==
[2016-07-08 15:15] VITALS: BP 123/89
[~2016-07-22] MED LIST changes: -IV RINGERS,LACTATED 1000ML 1,000 ML IV SCH; -LIDOCAINE 1% 1 ML SYRINGE. ID PRN; +MOME13HF IH; -ONDANSETRON PF 4 MG/2 ML VIAL. IV PRN; +OXYC5SOL PO; +PROAIR HFA8.5 GM INH; +SODIUM OXYBATE
--- NOTE | 2016-07-22 11:15 | KCIC ---
PROCEDURE CT abdomen and pelvis without contrast. HISTORY Abdominal muscular pain. Pain is at incision for Torin fundoplication performed on July 05. TECHNIQUE Axial images and coronal and sagittal re-formatted images are provided. BBs were placed at the site of previous incision. One or more of the following individualized dose reduction techniques were utilized for this exam: 1. Automated exposure control. 2. Adjustment of the mA and/or kV according to patient's size. 3. Use of iterative reconstruction technique. COMPARISON None. FINDINGS There is atelectasis in the lung bases, minimal. There is no pleural effusion. Heart is not enlarged. Solid organ evaluation is limited without contrast. Liver is grossly unremarkable. Gallbladder is absent. Spleen is absent. Pancreas and adrenals are unremarkable. There is no urolithiasis. There is atheromatous disease in the abdominal aorta without aneurysm. Lack of oral contrast limits evaluation of bowel. There are postsurgical changes noted at the GE junction, appears mildly edematous although can be within normal limits given recent surgery. There is no small bowel obstruction or mural thickening apparent. Colon is grossly unremarkable. The cecum appears floppy and extends down into the pelvis. The appendix is not definitely visualized, no secondary findings of an appendicitis. There is no free air. Bladder is unremarkable. Calcified phleboliths are noted. There are mild degenerative changes in the spine. BBs were placed at the area of concern at the incision on the right. There is minimal stranding compatible with prior incisional or port tract. There is no incisional hernia. There is no hematoma or fluid collection. There is no abdominal wall defect. There is no intramuscular hematoma. IMPRESSION - No hernia or fluid collection identified at the incisional site. - Postsurgical changes of Torin fundoplication. Proximal stomach appears slightly edematous although this can be within normal limits given recent surgery. Evaluation is limited without IV or oral contrast. - No acute abdominal findings. Electronically signed by: Tr Soriano MD (Jul 22, 2016 11:13:20)
== END | disposition home or self-care (01) ==
LOC: KCIC CT 10:18
PROVIDERS: ATTEND Family Medicine
DX: M79.1 Myalgia (principal)
CPT/HCPCS: 74176

== ENCOUNTER → 2016-07-27 | Outpatient (CLI) | payer MEDICARE, OTHER ==
[2016-07-08 15:15] VITALS: BP 123/89
[~2016-07-27] MED LIST changes: +BUPIVACAINE MPF 0.25% 10 ML VIAL. ONE; +methylPREDNISolone ACETATE 40 MG/ML VIAL. ONE
--- NOTE | 2016-07-28 01:18 | PAIN ---
DATE OF SERVICE: 07/27/2016 DIAGNOSES: 1. Myofascial pain. 2. Degenerative disk disease with lumbar radiculopathy. 3. Cervical radiculopathy with post-cervical laminectomy syndrome and spondylosis. HISTORY OF PRESENT ILLNESS: The patient is a 55-year-old female, who returns for followup status post trigger point injections in the mid and low back, 06/09/2016. The patient reports she did very well with the chief complaint of pain now. She has recently had surgery, laparoscopic Torin fundoplication and has some significant pain in the right abdomen and right lower quadrant since the surgery just inferior to the area of the trocar insertion for laparoscopic procedure, also pain in the left upper thigh. She assumes from positioning on the OR table from the laparoscopy. The patient reports sort, uncomfortable, stabbing, burning, tight and aching pain mostly in the left leg, but also in the right abdomen. The patient reports an 8 on a scale of 10, still some pain in the back, but this is much worse on the anterior abdomen on the right side as well as on the left superior thigh. She has been stretching the thigh, doing as best she can, also doing it the ____ hot tub with stretching but without significant decrease in pain. The patient reports no new motor or sensory deficits or other complaints. PHYSICAL EXAMINATION: VITAL SIGNS: The patient's blood pressure 140/51, pulse 60, respirations 18, and temperature is 98.2 degrees Fahrenheit. Height is 5 feet 3 inches, weight is 150 pounds. GENERAL: The patient is awake, alert, oriented, appropriate, very pleasant demeanor. HEENT: Head shows normocephalic, atraumatic. Extraocular movements are intact and symmetrical. Oral cavity shows mucous membranes moist and pink. NECK: Shows anterior throat supple without palpable lymphadenopathy noted. Swallow reflex is symmetrical. CHEST: Shows normal on inspection. Breath sounds are clear to auscultation bilaterally. HEART: Shows S1 and S2 clear. No murmurs auscultated. ABDOMEN: Soft with well-healed healing rather surgical scars with significant tenderness in the right lower quadrant and inferior to the aspect of the healing trocar wound from the surgery significant tenderness, very firm musculature, very rope-like and easily palpable on the abdominal wall itself and very tender without specific radiation. The patient's lower extremities shows previous above-knee amputation on the left, in the quadriceps on the left side, the superior aspect of the quadriceps is very firm, very tender, very rope-like musculature, which is very painful with palpation in the superior aspect of the quadriceps in the vastus medialis muscles especially consistent with trigger point areas, but without significant radiation on palpation. Options were discussed with the patient. At this time, the patient's old chart was reviewed as her current medication regimen updated. Current review of systems updated today as well. We will proceed with trigger point injections of the right abdominal wall as well as the left quadriceps. Risks were discussed including but not limited to bleeding, infection, possibility of intravascular injection and sequelae, spread of local anesthetic and numbness, side effects of steroid medication and poor results regarding pain control. The patient understands and wishes to proceed. The patient will return to clinic in approximately 2 weeks for followup, was counseled on return appointment, activity level and side effects to be aware of. DIAGNOSIS: Myofascial pain. PROCEDURE: Trigger point injections in the right abdominal wall and left quadriceps musculature under sterile prep and drape using local anesthetic. MEDICATIONS INJECTED: Total of Depo-Medrol 40 mg, total of 6 mL of 0.25% bupivacaine after negative aspiration ____. CONDITION ON DISCHARGE: Stable. The patient tolerated the patient well, had no complications. MI FRANCO MD DR: MINESH/stephanie JOB#: [id number] / [id number]
== END | disposition home or self-care (01) ==
LOC: PNCL 08:28
PROVIDERS: ATTEND Anesthesiology
DX: M79.1 Myalgia (principal); M51.16 Intervertebral disc disorders with radiculopathy, lumbar region; M47.22 Other spondylosis with radiculopathy, cervical region; M96.1 Postlaminectomy syndrome, not elsewhere classified; I10 Essential (primary) hypertension; J45.909 Unspecified asthma, uncomplicated; E66.9 Obesity, unspecified; K21.9 Gastro-esophageal reflux disease without esophagitis; Z87.442 Personal history of urinary calculi; Z90.710 Acquired absence of both cervix and uterus; Z87.39 Personal history of other diseases of the musculoskeletal system and connective tissue; Z96.60 Presence of unspecified orthopedic joint implant; Z86.14 Personal history of Methicillin resistant Staphylococcus aureus infection
CPT/HCPCS: 20552; J1030; J3490

== ENCOUNTER → 2016-10-27 | Outpatient (CLI) | payer MEDICARE, OTHER ==
[~2016-10-27] MED LIST changes: +IMIP10TA2 PO; +LISD40CA PO; +METF-620 PO; -METF10002 PO
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
== END | disposition home or self-care (01) ==
LOC: PNCL 08:02
PROVIDERS: ATTEND Anesthesiology
DX: M79.1 Myalgia (principal); M50.30 Other cervical disc degeneration, unspecified cervical region; M48.02 Spinal stenosis, cervical region; M96.1 Postlaminectomy syndrome, not elsewhere classified; M51.16 Intervertebral disc disorders with radiculopathy, lumbar region; E66.9 Obesity, unspecified; I10 Essential (primary) hypertension; J45.909 Unspecified asthma, uncomplicated; Z86.73 Personal history of transient ischemic attack (TIA), and cerebral infarction without residual deficits; Z90.49 Acquired absence of other specified parts of digestive tract; Z90.710 Acquired absence of both cervix and uterus; Z87.442 Personal history of urinary calculi; Z96.652 Presence of left artificial knee joint; Z87.39 Personal history of other diseases of the musculoskeletal system and connective tissue; Z87.01 Personal history of pneumonia (recurrent)
CPT/HCPCS: 20553; J1030; J3490

== ENCOUNTER → 2016-11-11 | Outpatient (CLI) | payer OTHER ==
[~2016-11-11] MED LIST changes: -BUPIVACAINE MPF 0.25% 10 ML VIAL. ONE; +DICL100G18 TP; -DICL100G7 TP; -EPIN0.3A4 IJ; +EPIPEN 2-P0.3 MG/0.3 IJ; -LISD40CA PO; +LISD40CA3 PO; -OXYC10TA32 PO; +OXYC10TA45 PO; +OXYC5CAP PO; -OXYC5CAP3 PO; +SILV20CR14 TP; -SILV20CR4 TP; -methylPREDNISolone ACETATE 40 MG/ML VIAL. ONE
--- NOTE | 2016-11-12 04:14 | PAIN ---
DATE OF SERVICE: 11/11/2016 PROGRESS NOTE FOR PAIN CLINIC DIAGNOSES: 1. Myofascial pain. 2. Lumbar degenerative disk disease with lumbar radiculopathy. 3. Cervical radiculopathy with cervical degenerative disk disease and spinal stenosis. 4. Post-cervical laminectomy syndrome. HISTORY OF PRESENT ILLNESS: The patient is a 56-year-old female who returns for followup status post trigger point injections of the trapezius, rhomboid and bilateral cervical and thoracic paraspinous musculature on 10/27/2016. The patient reports that she did fairly well initially, but the pain returned very quickly within a few days. There was only about 20% improvement overall. The patient reports still significant pain in the base of the neck, upper shoulders and upper, mid and lower back radiating to the bilateral lower extremities, also radiating to the upper extremities, more in the shoulders and essentially equal right and left bilaterally. The patient reports this has been awakening her from sleep at night. She rates it as 10 on a scale of 10 at its worst, is a 9 on average and a 7 at its least. It is a sharp, burning, stabbing pain that is radiating, constant, unbearable to some extent. The patient reports mostly in the neck and shoulders with the trigger point area in the inferior aspect of the cervical paraspinous muscles and the superior thoracic paraspinous muscles only lasting for a short period of time, which generally lasts much longer for her and she is somewhat disappointed with this. The patient reports no new motor or sensory deficits, no new bowel or bladder incontinence or other complaints, but still significant pain is noted. The patient is taking oxycodone 10 mg immediate release with only moderate decrease in pain about 40-50% but without side effects. PHYSICAL EXAMINATION: VITAL SIGNS: Today, the patient's blood pressure 139/96, pulse 77, respirations 18, temperature 98.0 degrees Fahrenheit. Height is 5 feet 3 inches, weight is 158 pounds. GENERAL: The patient is awake, alert, oriented, appropriate, very pleasant demeanor. HEENT: Shows head is normocephalic, atraumatic. Extraocular movements are intact and symmetrical. Oral cavity shows mucous membranes moist and pink. Dentition is intact. NECK: Shows anterior throat supple without palpable lymphadenopathy noted. Swallow reflex is symmetrical. CHEST: Shows normal on inspection. Breath sounds are clear to auscultation bilaterally. HEART: Shows S1 and S2 clear. No murmurs auscultated. ABDOMEN: Soft, nontender, nondistended. No palpable organomegaly. No rebound or guarding demonstrated. BACK: Shows spine grossly in the midline with cervical paraspinous musculature moderately tender, but symmetrical on inspection with palpation shows moderate tenderness in the inferior aspect of cervical paraspinous muscles bilaterally, but without asymmetry, atrophy or hypertrophy. The patient shows good rotational motion of the cervical spine, somewhat guarded with extension, but not with forward flexion. Right and left lateral rotation again guarded, but full rotation past 45 degrees without difficulty. There is some significant tenderness in the inferior aspect of the cervical paraspinous muscles with multiple trigger point areas with very firm rope-like musculature. This is true with the superior medial and lateral trapezius bilaterally, essentially equal and symmetrical as is the superior aspect of the thoracic paraspinous musculature and the rhomboid musculatures, more noticeable slightly on the right than the left, but present bilaterally with very firm rope-like musculature bilaterally in these areas as well, but without specific radiation, but very tender on palpation bilaterally. EXTREMITIES: Upper extremities showed deep tendon reflexes 2+ in the biceps and triceps tendons. Motor exam is strong with 5/5 mechanic recovery strength, biceps and triceps flexion. Lower extremities show deep tendon reflexes on the right at 1+/4 in the patellar and tendo calcaneus tendons. Left side has [id number] amputation with prosthesis noted. Motor exam on the right is 5/5 with dorsiflexion, extension, quadriceps and hamstring flexion. Options were discussed with the patient. The patient's old chart was reviewed as her current medication regimen updated. Current review of systems updated today as well and we will send for MRI scan of the cervical and thoracic spines, as she has had some history of compression fractures in the upper thoracic spine and is worried about this. We will see if there is any clear explanation for her pathology ____ radicular pain in the upper extremities. Also change the patient's medication and add OxyContin at 20 mg for extended release q.12 hours with the 10 mg of oxycodone for breakthrough. The patient was given instruction as well as side effects to be aware of with the medication and will follow up in approximately 2 weeks after her MRI scan, which were ordered today. We will go over those results as well and decide on future treatment at that time. The patient was cautioned as to side effects of the medication as well as medication regimen and will follow up as scheduled. MI FRANCO MD DR: MINESH/stephanie JOB#: [id number] / [id number]
== END | disposition home or self-care (01) ==
LOC: PNCL 07:53
PROVIDERS: ATTEND Anesthesiology
DX: M51.16 Intervertebral disc disorders with radiculopathy, lumbar region (principal); M50.10 Cervical disc disorder with radiculopathy, unspecified cervical region; M48.02 Spinal stenosis, cervical region; M96.1 Postlaminectomy syndrome, not elsewhere classified
CPT/HCPCS: 99212

== ENCOUNTER → 2016-11-22 | Outpatient (CLI) | payer OTHER ==
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
== END | disposition home or self-care (01) ==
LOC: KCIC MRI 08:09
PROVIDERS: ATTEND Anesthesiology
DX: M48.02 Spinal stenosis, cervical region (principal); M51.34 Other intervertebral disc degeneration, thoracic region; M48.04 Spinal stenosis, thoracic region; Z86.69 Personal history of other diseases of the nervous system and sense organs; Z86.73 Personal history of transient ischemic attack (TIA), and cerebral infarction without residual deficits; I10 Essential (primary) hypertension; I82.409 Acute embolism and thrombosis of unspecified deep veins of unspecified lower extremity; J45.909 Unspecified asthma, uncomplicated; Z90.49 Acquired absence of other specified parts of digestive tract; E66.9 Obesity, unspecified; Z68.43 Body mass index [BMI] 50.0-59.9, adult; Z87.01 Personal history of pneumonia (recurrent); Z90.710 Acquired absence of both cervix and uterus; Z87.442 Personal history of urinary calculi; Z87.39 Personal history of other diseases of the musculoskeletal system and connective tissue; M86.9 Osteomyelitis, unspecified; Z88.6 Allergy status to analgesic agent; Z88.1 Allergy status to other antibiotic agents; Z91.011 Allergy to milk products; Z91.048 Other nonmedicinal substance allergy status
CPT/HCPCS: 72141; 72146

== ENCOUNTER → 2016-11-25 | Outpatient (CLI) | payer OTHER ==
[~2016-11-25] MED LIST changes: +IOHEXOL 180 MG/ML 20ML VIAL. ONE; +methylPREDNISolone ACETATE 40 MG/ML VIAL. ONE; +methylPREDNISolone ACETATE 80 MG/ML VIAL. ONE
== END | disposition home or self-care (01) ==
LOC: PNCL 08:11
PROVIDERS: ATTEND Anesthesiology
DX: M54.2 Cervicalgia (principal); Z88.1 Allergy status to other antibiotic agents; Z88.3 Allergy status to other anti-infective agents; Z91.011 Allergy to milk products; Z88.8 Allergy status to other drugs, medicaments and biological substances; Z91.048 Other nonmedicinal substance allergy status
CPT/HCPCS: 62321; J1030; J1040

== ENCOUNTER → 2016-12-07 | Outpatient (CLI) | payer OTHER ==
[~2016-12-07] MED LIST changes: +BUPIVACAINE MPF 0.25% 10 ML VIAL. ONE; -IOHEXOL 180 MG/ML 20ML VIAL. ONE; -methylPREDNISolone ACETATE 80 MG/ML VIAL. ONE
== END | disposition home or self-care (01) ==
LOC: PNCL 08:01
PROVIDERS: ATTEND Anesthesiology
DX: M79.1 Myalgia (principal); M51.16 Intervertebral disc disorders with radiculopathy, lumbar region; M50.10 Cervical disc disorder with radiculopathy, unspecified cervical region; M96.1 Postlaminectomy syndrome, not elsewhere classified; Z86.69 Personal history of other diseases of the nervous system and sense organs; Z86.73 Personal history of transient ischemic attack (TIA), and cerebral infarction without residual deficits; I10 Essential (primary) hypertension; J45.909 Unspecified asthma, uncomplicated; Z87.01 Personal history of pneumonia (recurrent); Z90.49 Acquired absence of other specified parts of digestive tract; E66.9 Obesity, unspecified; Z68.43 Body mass index [BMI] 50.0-59.9, adult; Z90.710 Acquired absence of both cervix and uterus; Z87.442 Personal history of urinary calculi; Z87.39 Personal history of other diseases of the musculoskeletal system and connective tissue; Z88.6 Allergy status to analgesic agent; Z88.1 Allergy status to other antibiotic agents; Z91.011 Allergy to milk products; Z88.8 Allergy status to other drugs, medicaments and biological substances; Z91.048 Other nonmedicinal substance allergy status
CPT/HCPCS: 20553; J1030; J3490

== ENCOUNTER → 2017-04-20 | Outpatient (CLI) | payer OTHER ==
[~2017-04-20] MED LIST changes: -ASPI1TAB30 PO; +ASPI1TAB31 PO; -BUPIVACAINE MPF 0.25% 10 ML VIAL. ONE; +IOHEXOL 180 MG/ML 10 ML VIAL. ONE; -OXYC5TAB PO; +OXYC5TAB95 PO; +methylPREDNISolone ACETATE 80 MG/ML VIAL. ONE
--- NOTE | 2017-04-20 18:16 | PAIN ---
DATE OF SERVICE: 04/20/2017 DIAGNOSES: 1. Myofascial pain. 2. Lumbar degenerative disk disease and lumbar radiculopathy. 3. Cervical radiculopathy, cervical degenerative disease and cervical spinal stenosis. 4. Thoracic degenerative disk disease. HISTORY OF PRESENT ILLNESS: The patient is a 56-year-old female who returns for followup, last seen 12/07/2016. The patient underwent trigger point injection at that time. Has had previous cervical epidural injections, lumbar epidural injections, thoracic epidural injections with good results. Each of these have been several months since any of these been performed. Her last lumbar injection was May of 2016 with thoracic injection in earlier November. The patient did very well with each of these. The patient reports the pain now is increasing in her low back, bilateral lower extremities, mostly in the posterior gluteus, posterior thighs, lateral thighs, anterior thighs, medial thighs, worse on the left than the right. The patient has an above-knee amputation on the left side and has had significant difficulty with heavy prosthesis which seems to be exacerbating her back pain significantly. The patient reports more ambulation she does, the worst the pain gets, it is spreading to the right side as well with radiating pain into the lower extremities as noted. The patient reports 10 on a scale 10 at its worst, 9 on average, 7 at least, and 7 today. The patient reports a sharp tight cramping, burning, constant, radiating, becoming severe and becoming more unbearable. The patient reports no loss of motor function, but significant pain as noted. The patient reports it awakens her from sleep occasionally, but not every night. She usually takes pain medication, reposition and get back to sleep. The patient reports no new motor or sensory deficits, no new bowel or bladder incontinence or other complaints. PHYSICAL EXAMINATION: VITAL SIGNS: The patient's blood pressure is 144/103, pulse 76, respirations are 18, temperature 98.2 degrees Fahrenheit, height is 5 feet 3 inches, weighs 140 pounds. GENERAL: The patient is awake, alert, oriented, appropriate, very pleasant demeanor. HEENT: Head shows normocephalic, atraumatic. Extraocular movements are intact, symmetrical. Oral cavity: Mucous membranes moist and pink. Dentition is intact. NECK: Shows anterior throat supple without palpable lymphadenopathy noted. Swallow reflex is symmetrical. CHEST: Shows normal with inspection. Breath sounds clear to auscultation bilaterally. HEART: Shows S1, S2 clear. No murmurs auscultated. ABDOMEN: Soft, nontender, nondistended. No palpable organomegaly. No rebound or guarding demonstrated. BACK: Shows spine grossly midline, normal-appearing thoracic kyphosis, some minor flattening lumbar lordotic curvature. No lesions or rashes are noted. Lumbar paraspinous muscle shows symmetrical with inspection. On palpation it shows some moderate tenderness bilaterally in the middle and lower distribution, slightly more on the left than right, but symmetrical without evidence of atrophy or hypertrophy. The patient shows good rotational motion both laterally, right and left as well as extension and flexion without significant increase in pain. EXTREMITIES: The patient's lower extremity shows again above-knee amputation on the left. Right side shows quadriceps and hamstring 5/5 and symmetrical. Dorsiflexion, extension 5/5 on the right as well. Quadriceps and hamstring on the left showed significant pain in medial aspect of the quadriceps as well as anterior aspect into the groin with flexion and extension on the left side. Peripheral pulses on the right, posterior tibial is 1+. No peripheral edema is noted in the right lower extremity. Options were discussed with the patient and the patient's old chart was reviewed as her current medication regimen updated. Current review of systems updated today as well. We will proceed with a lumbar epidural steroid injection today with fluoroscopic guidance. Risks were again discussed including, but not limited to bleeding, infection, possibility of epidural hematoma and subsequent neurological compromise, dural puncture, headaches, spinal cord and/or nerve damage, side effects of steroid medication and poor results regarding pain control. The patient understands and wished to proceed. The patient will return to clinic in approximately 2 weeks for followup, was counseled her on return appointment, activity level and side effects to be aware of. DIAGNOSES: 1. Lumbar radiculopathy with lumbar degenerative disk disease. 2. Thoracic degenerative disk disease. 3. Cervical radiculopathy with cervical spinal stenosis and cervical degenerative disk disease. PROCEDURE: Lumbar epidural steroid injection, translaminar approach at the L4-L5 level using C-arm fluoroscopic guidance under sterile prep and drape using local anesthetic. Medication injected a total of 120 mg Depo-Medrol plus 10 mL of preservative-free normal saline and 2 mL Isovue for contrast. CONDITION AT DISCHARGE: Stable. The patient tolerated procedure well, had no complications. MI FRANCO MD DR: MINESH/stephanie JOB#: [id number] / [id number]
== END | disposition home or self-care (01) ==
LOC: PNCL 08:21
PROVIDERS: ATTEND Anesthesiology
DX: M51.16 Intervertebral disc disorders with radiculopathy, lumbar region (principal); M51.34 Other intervertebral disc degeneration, thoracic region; M50.10 Cervical disc disorder with radiculopathy, unspecified cervical region; M48.02 Spinal stenosis, cervical region; I10 Essential (primary) hypertension; I82.409 Acute embolism and thrombosis of unspecified deep veins of unspecified lower extremity; J45.909 Unspecified asthma, uncomplicated; I26.99 Other pulmonary embolism without acute cor pulmonale; G47.30 Sleep apnea, unspecified; Z90.49 Acquired absence of other specified parts of digestive tract; E66.9 Obesity, unspecified; K21.9 Gastro-esophageal reflux disease without esophagitis; Z90.710 Acquired absence of both cervix and uterus; Z90.721 Acquired absence of ovaries, unilateral; M86.9 Osteomyelitis, unspecified; Z91.02 Food additives allergy status; Z91.011 Allergy to milk products; Z88.8 Allergy status to other drugs, medicaments and biological substances; Z88.5 Allergy status to narcotic agent; Z86.59 Personal history of other mental and behavioral disorders; Z87.892 Personal history of anaphylaxis; Z88.2 Allergy status to sulfonamides; Z88.1 Allergy status to other antibiotic agents; Z88.0 Allergy status to penicillin
CPT/HCPCS: 62323; J1030; J1040

== ENCOUNTER → 2017-05-05 | Outpatient (CLI) | payer OTHER ==
[~2017-05-05] MED LIST changes: +BUPIVACAINE MPF 0.25% 10 ML VIAL. ONE; -IBUP200T43 PO; +IBUP200T44 PO; -IOHEXOL 180 MG/ML 10 ML VIAL. ONE; -methylPREDNISolone ACETATE 80 MG/ML VIAL. ONE
--- NOTE | 2017-05-05 19:09 | PAIN ---
DATE OF SERVICE: 05/05/2017 DIAGNOSES: 1. Myofascial pain. 2. Lumbar degenerative disk disease with lumbar radiculopathy. 3. Cervical radiculopathy, cervical degenerative disease, and cervical spinal stenosis. 4. Thoracic degenerative disk disease. HISTORY OF PRESENT ILLNESS: The patient is a 56-year-old female who returns for followup status post lumbar epidural steroid injection on 04/20/2017 with very good results. The patient reports about 80-85% improvement in her low back pain. Her chief complaint today is some myofascial and spastic pain in the anterior upper left quadriceps on the side she has an above-knee amputation on the left. The patient has had significant pain secondary most likely to the weight of her prosthesis, which has been keeping some pain steady in her back as well as her leg and hip on the left side. The patient reports some increased spasticity in this area and has responded well to trigger point injections in the quadriceps in the past. The patient reports her pain as a 10 on a scale of 10 at its worst, 8 on average, 6 at its least, and is a 6 today. It is tingling, burning, aching, dull, also tight, constant pain, worse with walking, standing, also with raising her hip and leg on her left side. The patient reports no new motor or sensory deficits, no new bowel or bladder incontinence. Her back is doing much better. She has been increasing her activity with greater ease and comfort except for the left leg as described. The patient reports no new changes. PHYSICAL EXAMINATION: VITAL SIGNS: The patient's blood pressure 159/102, pulse 81, respirations 18, temperature 98.2 degrees Fahrenheit, height is 5 feet 3 inches. GENERAL: The patient is awake, alert, oriented, appropriate, very pleasant demeanor. HEENT: Head shows normocephalic, atraumatic. Extraocular movements are intact, symmetrical. Oral cavity: Mucous membranes moist and pink. Dentition is intact. NECK: Shows anterior throat supple without palpable lymphadenopathy noted. Swallow reflex is symmetrical. Cervical spine shows some tenderness with increased extension, but not with forward flexion. No radiation. CHEST: Shows normal on inspection. Breath sounds are clear to auscultation bilaterally. HEART: Shows S1, S2 clear. No murmurs auscultated. ABDOMEN: Soft, nontender, nondistended. No palpable organomegaly. No rebound or guarding demonstrated. BACK: Shows spine grossly in the midline with normal appearing thoracic kyphosis, lumbar lordotic curvature and cervical lordotic curvature. Cervical paraspinous muscle shows some moderate tenderness with palpation in the inferior aspect of the cervical paraspinous musculature, more on the right than the left, but without asymmetry, without trigger points. Lumbar paraspinous muscle shows only some moderate tenderness with deep palpation in the low lumbar distribution bilaterally without radiation. EXTREMITIES: Lower extremities show above-knee amputation on the left. Right side patellar tendon shows deep tendon reflexes at 1+ in the patellar and tendo calcaneus tendons. Motor exam is strong with 5/5 dorsiflexion, extension on the right. Left side shows again above knee amputation, significant tenderness in the anterior aspect of the superior quadriceps musculature, mostly in the medial and anterior aspects of the quadriceps, very firm rope-like trigger point musculature very easily palpable near the insertion of the quadriceps in the upper leg and lower pelvis. Options were discussed with the patient. The patient's old chart was reviewed as her current medication regimen updated. Current review of systems updated today as well. We will proceed with trigger point injections of the left quadriceps musculature. Risks were discussed including but not limited to bleeding, infection, possibility of intravascular injection sequelae, spread of local anesthetic and numbness, side effects of steroid medication and poor results regarding pain control. The patient understands and wished to proceed. The patient will return to the clinic in approximately 2 weeks for followup, was counseled on return appointment, activity level and side effects to be aware of. DIAGNOSIS: Myofascial pain. PROCEDURE: Trigger point injections to left quadriceps insertion x 2 muscle groups under local anesthetic using a sterile prep and drape. MEDICATION INJECTED: A total of 40 mg of Depo-Medrol plus total of 4 mL of 0.25% bupivacaine after negative aspiration at each level and each injection site. CONDITION AT DISCHARGE: Stable. The patient tolerated the procedure well, had no complications. MI FRANCO MD DR: MINESH/stephanie JOB#: [id number] / [id number]
== END | disposition home or self-care (01) ==
LOC: PNCL 08:23
PROVIDERS: ATTEND Anesthesiology
DX: M79.1 Myalgia (principal); M51.16 Intervertebral disc disorders with radiculopathy, lumbar region; M50.10 Cervical disc disorder with radiculopathy, unspecified cervical region; M48.02 Spinal stenosis, cervical region; M51.34 Other intervertebral disc degeneration, thoracic region; Z86.69 Personal history of other diseases of the nervous system and sense organs; Z86.73 Personal history of transient ischemic attack (TIA), and cerebral infarction without residual deficits; I10 Essential (primary) hypertension; Z86.718 Personal history of other venous thrombosis and embolism; Z87.01 Personal history of pneumonia (recurrent); Z90.49 Acquired absence of other specified parts of digestive tract; E66.9 Obesity, unspecified; Z87.39 Personal history of other diseases of the musculoskeletal system and connective tissue; Z86.14 Personal history of Methicillin resistant Staphylococcus aureus infection; Z90.710 Acquired absence of both cervix and uterus; Z88.6 Allergy status to analgesic agent; Z88.1 Allergy status to other antibiotic agents; Z91.011 Allergy to milk products; Z88.8 Allergy status to other drugs, medicaments and biological substances; Z91.048 Other nonmedicinal substance allergy status
CPT/HCPCS: 20552; J1030; J3490

== ENCOUNTER → 2017-06-22 | Outpatient (CLI) | payer OTHER | END | disposition home or self-care (01) | LOC: KCIC MRI 07:58 | DX: S73.102A Unspecified sprain of left hip, initial encounter (principal); M16.12 Unilateral primary osteoarthritis, left hip; Z86.14 Personal history of Methicillin resistant Staphylococcus aureus infection; X58.XXXA Exposure to other specified factors, initial encounter; Y93.89 Activity, other specified; Y92.89 Other specified places as the place of occurrence of the external cause; Y99.8 Other external cause status | CPT/HCPCS: 73718; 73721 ==

== ENCOUNTER → 2017-10-03 | Outpatient (CLI) | payer OTHER | END | disposition home or self-care (01) | LOC: PNCL 08:23 | DX: M79.1 Myalgia (principal); M51.16 Intervertebral disc disorders with radiculopathy, lumbar region; M50.10 Cervical disc disorder with radiculopathy, unspecified cervical region; M51.34 Other intervertebral disc degeneration, thoracic region; M48.02 Spinal stenosis, cervical region | CPT/HCPCS: 72050; G0463 ==

== ENCOUNTER → 2017-12-08 | Outpatient (CLI) | payer OTHER | END | disposition home or self-care (01) | LOC: KCIC 08:34 | DX: R19.03 Right lower quadrant abdominal swelling, mass and lump (principal); I10 Essential (primary) hypertension; E11.9 Type 2 diabetes mellitus without complications; J45.909 Unspecified asthma, uncomplicated; K21.9 Gastro-esophageal reflux disease without esophagitis; G43.909 Migraine, unspecified, not intractable, without status migrainosus; E66.9 Obesity, unspecified; Z87.442 Personal history of urinary calculi; Z90.81 Acquired absence of spleen | CPT/HCPCS: 74018 ==

== ENCOUNTER → 2017-12-19 | Outpatient (CLI) | payer OTHER | END | disposition home or self-care (01) | LOC: MAMMO 12:39 | DX: R92.8 Other abnormal and inconclusive findings on diagnostic imaging of breast (principal); I10 Essential (primary) hypertension; E11.9 Type 2 diabetes mellitus without complications; J45.909 Unspecified asthma, uncomplicated; G43.909 Migraine, unspecified, not intractable, without status migrainosus; K21.9 Gastro-esophageal reflux disease without esophagitis; E66.9 Obesity, unspecified; Z96.652 Presence of left artificial knee joint; Z87.442 Personal history of urinary calculi; Z87.01 Personal history of pneumonia (recurrent); Z86.718 Personal history of other venous thrombosis and embolism; Z86.59 Personal history of other mental and behavioral disorders; Z86.14 Personal history of Methicillin resistant Staphylococcus aureus infection; Z87.39 Personal history of other diseases of the musculoskeletal system and connective tissue; Z86.69 Personal history of other diseases of the nervous system and sense organs; Z87.892 Personal history of anaphylaxis; Z90.49 Acquired absence of other specified parts of digestive tract; Z90.710 Acquired absence of both cervix and uterus | CPT/HCPCS: 76641; 77066; G0279 ==

== ENCOUNTER → 2018-01-19 | Outpatient (CLI) | payer OTHER ==
[~2018-01-19] MED LIST changes: -BUPIVACAINE MPF 0.25% 10 ML VIAL. ONE; -METF-620 PO; +METF10003 PO; -METF500T4 PO; +METF500T5 PO; -methylPREDNISolone ACETATE 40 MG/ML VIAL. ONE
--- NOTE | 2018-01-19 15:33 | PAIN ---
DATE OF SERVICE: 01/19/2018 PROGRESS NOTE FOR PAIN CLINIC DIAGNOSES: 1. Myofascial pain. 2. Lumbar degenerative disk disease with lumbar radiculopathy. 3. Cervical radiculopathy with cervical degenerative disk disease and cervical spinal stenosis. 4. Thoracic degenerative disk disease. HISTORY OF PRESENT ILLNESS: The patient is a 57-year-old female who returns for followup status post trigger point injections, epidural steroid injections and medication management. The patient has recently had a left above knee amputation stump revision last week at [facility] and was discharged yesterday, presents today with significant pain in the stump itself as well as in her low back, but main complaint is the stump had postsurgical pain involved. The patient reports pain is a 10 on a scale of 10 at its worst, 9 on average and 8 at its least and is an 8 today. The patient was discharged without pain medication. She is under contract with our office. The patient reports the pain is significant with any type of weightbearing. She has not yet fitted with prosthesis, is using a motorized wheelchair to get around. The patient reports pain is burning, aching, sharp, tight with pressure, constant, becoming unbearable at times. The patient reports she cried all night because of the pain and presented today. The patient reports no new motor or sensory deficits or other complaints. No other new complaints with her back or neck or thoracic degenerative changes. PHYSICAL EXAMINATION: VITAL SIGNS: Blood pressure 104/81, pulse 81, respirations 18, temperature is 98.2 degrees Fahrenheit, height is 5 feet 3 inches, weighs 133 pounds. GENERAL: The patient is awake, alert, oriented, appropriate, very pleasant demeanor. HEENT: Head shows normocephalic, atraumatic. Extraocular movements are intact and symmetrical. Oral cavity: Mucous membranes are moist and pink. Dentition is intact. NECK: Shows anterior throat supple without palpable lymphadenopathy noted. Swallow reflex is symmetrical. CHEST: Shows normal on inspection. Breath sounds are clear to auscultation bilaterally. HEART: Shows S1, S2 clear. No murmurs auscultated. ABDOMEN: Soft, nontender, nondistended. BACK: Shows spine grossly in the midline. Normal-appearing cervical lordotic curvature, thoracic kyphotic curvature, and lumbar lordotic curvature. Lumbar paraspinous muscle shows symmetrical on inspection, with palpation shows some moderate tenderness bilaterally, but only diffusely with the lumbar paraspinous muscles, mostly in the lower lumbar distribution without radiation, with no tenderness over the spinous processes, sacrum or sacroiliac regions. EXTREMITIES: The patient's lower extremities show above knee amputation with well healing surgical scar, which is bandaged on the left knee completely medially and laterally around the stump, which is clean and dry and it appears to be well healing in its process. Right side shows dorsiflexion and extension 5/5 as is quadriceps and hamstring flexion. Deep tendon reflex on the right is 2+ patellar, 1+ tendo-calcaneus tendons. Options were discussed with the patient. The patient's old chart was reviewed as her current medication regimen updated. Current review of systems updated today as well. We will refill the patient's OxyContin 10 mg as well as oxycodone 10 mg immediate release and Lidoderm patches for the low back. The patient was given instructions as well as side effects to be aware of with each of the medications, was given a 2-month prescription. I was asked to call the clinic within the week for progress report at that time. The patient has done very well with these medications, has had no side effects in the past and tolerates them quite well and was tolerating them well at place of her surgery as well. The patient will be given a 2-month prescription. She has had appropriate K-TRACS reporting as well as appropriate urinalysis in the past and again we will call within the next week with a progress report doing well or not. MI FRANCO MD DR: MINESH/stephanie JOB#: [id number] / [id number]
== END | disposition home or self-care (01) ==
LOC: PNCL 11:02
PROVIDERS: ATTEND Anesthesiology
DX: M51.16 Intervertebral disc disorders with radiculopathy, lumbar region (principal); M50.10 Cervical disc disorder with radiculopathy, unspecified cervical region; M48.02 Spinal stenosis, cervical region; M51.34 Other intervertebral disc degeneration, thoracic region; M79.1 Myalgia; I10 Essential (primary) hypertension; E11.9 Type 2 diabetes mellitus without complications; J45.909 Unspecified asthma, uncomplicated; K21.9 Gastro-esophageal reflux disease without esophagitis; G43.909 Migraine, unspecified, not intractable, without status migrainosus; Z86.73 Personal history of transient ischemic attack (TIA), and cerebral infarction without residual deficits; Z90.722 Acquired absence of ovaries, bilateral; Z90.79 Acquired absence of other genital organ(s); Z90.710 Acquired absence of both cervix and uterus; Z90.49 Acquired absence of other specified parts of digestive tract; Z87.442 Personal history of urinary calculi; Z86.718 Personal history of other venous thrombosis and embolism; Z87.39 Personal history of other diseases of the musculoskeletal system and connective tissue; Z86.69 Personal history of other diseases of the nervous system and sense organs; Z87.892 Personal history of anaphylaxis; Z88.2 Allergy status to sulfonamides; Z88.0 Allergy status to penicillin; Z88.1 Allergy status to other antibiotic agents; Z88.3 Allergy status to other anti-infective agents; Z88.8 Allergy status to other drugs, medicaments and biological substances; Z88.5 Allergy status to narcotic agent; Z88.6 Allergy status to analgesic agent
CPT/HCPCS: 99212

== ENCOUNTER → 2019-06-21 | Outpatient (CLI) | payer OTHER, MEDICAID ==
[~2019-06-21] MED LIST changes: -ACLI400A2 IH; +ACLI400A3 IH; +ALBU2.5V8 IH; +ALBU2.5V8 INH; -HYDR12.53 PO; +HYDR12.575 PO; -LINA145C PO; +LINZESS145 MCG PO; +LISI1TAB20 PO; -LISI1TAB7 PO; -METF10003 PO; +METF10007 PO; +METF500T16 PO; -METF500T5 PO; -OXYC10TA45 PO; +OXYC10TA46 PO; +OXYC5TAB4 PO; -OXYC5TAB95 PO; -PROAIR HFA8.5 GM IH; -PROAIR HFA8.5 GM INH; +REGADENOSON 0.4 MG/5 ML DISP.SYRIN. IV ONE
--- NOTE | 2019-06-21 08:49 | CARD ---
MR#: [id number] Date of Study: 06/21/2019 Ordering Physician: KENA CAVANAUGH, Referring Physician: KENA CAVANAUGH, Tech: Jarek Naranjo RDCS APPROVED REPORT EXAM: Two-dimensional and M-mode echocardiogram with Doppler and color Doppler. Other Information Quality : AverageHR: 62bpm Rhythm : NSR INDICATION Chest Pain RISK FACTORS Hypertension Diabetes WILLIAMSON 2D DIMENSIONS RVDd3.4 (2.9-3.5cm)Left Atrium(2D)2.7 (1.6-4.0cm) IVSd1.6 (0.7-1.1cm)Aortic Root(2D)3.1 (2.0-3.7cm) LVDd3.0 (3.9-5.9cm)LVOT Diameter2.2 (1.8-2.4cm) PWd1.1 (0.7-1.1cm)LVDs2.3 (2.5-4.0cm) FS (%) 21.0 %SV15.2 ml LVEF(%)44.3 (>50%) Aortic Valve AoV Peak Manfred.118.8cm/Hiram Peak GR.5.6mmHg LVOT Peak Manfred.95.9cm/sAVA (VMAX)3.01cm2 Mitral Valve MV E Ubmdmezu90.4cm/sMV DECEL [id number] MV A Stqmplyb07.9cm/sE/A Ratio1.3 MV A Uqezcoxh326xn Pulmonary Valve PV Peak Cxfnopyu52.7cm/s Tricuspid Valve TR P. Lhdfnpdl104ws/sRAP MCCREDEQ15reDd TR Peak Gr.12mmHg Pulmonary Vein S1 Jkjebqth69.6cm/sD2 Clgwycdp81.1cm/s PVa fxhvhnzl144pwst LEFT VENTRICLE The left ventricle is normal size. Mild to moderate basal septal hypertrophy. The left ventricular sy stolic function is normal. The Ejection Fraction is 60-65%. There is normal LV segmental wall motion. The left ventricular diastolic function and filling is normal for age. There is no ventricular septa l defect visualized. RIGHT VENTRICLE The right ventricle is normal size. There is normal right ventricular wall thickness. The right ventr icular systolic function is normal. ATRIA The left atrium size is normal. The right atrium size is normal. The interatrial septum is intact wit h no evidence for an atrial septal defect or patent foramen ovale as noted on 2-D or Doppler imaging. AORTIC VALVE The aortic valve is mildly sclerotic. Doppler and Color Flow revealed no significant aortic regurgita tion. There is no significant aortic valvular stenosis. MITRAL VALVE The mitral valve is normal in structure and function. There is no mitral valve stenosis. Doppler and Color-flow revealed trace to mild mitral regurgitation. TRICUSPID VALVE The tricuspid valve is normal in structure and function. Doppler and Color Flow revealed trace tricus pid regurgitation. PAP is estimated at 15 mmHg. There is no tricuspid valve stenosis. PULMONIC VALVE The pulmonary valve is normal in structure and function. Doppler and Color Flow revealed trace to mil d pulmonic valvular regurgitation. There is no pulmonic valvular stenosis. GREAT VESSELS The aortic root is normal in size. The ascending aorta is normal in size. The pulmonary artery is nor mal. The IVC is normal in size and collapses >50% with inspiration. PERICARDIAL EFFUSION There is no pleural effusion. There is no evidence of significant pericardial effusion. Critical Notification Critical Value: No <Conclusion> The left ventricular systolic function is normal. The Ejection Fraction is 60-65%. There is normal LV segmental wall motion. Trace to mild mitral regurgitation. Trace tricuspid regurgitation. PAP is estimated at 15 mmHg. There is no evidence of significant pericardial effusion. Signed by : Kena Cavanaugh, Electronically Approved : 06/21/2019 08:48:54
--- NOTE | 2019-06-21 12:45 | RAD ---
MR#: [id number] Date of Study: 06/21/2019 Ordering Physician: KENA NICHOLAS, Referring Physician: SANDRA SARMIENTO Tech: SATYA Mclean, ARRT (R) (N) APPROVED REPORT Test Type: Pharmacological Stress Nurse/Tech: Payal Thorne R.N. Test Indications: Chest pain Cardiac History: Family history, Hypertension Medications: Zocor Medical History: See Electronic Medical Record Resting ECG: NSR Resting Heart Rate: 60 bpm Resting Blood Pressure: 135/82mmHg Pretest Chest Pain: No chest pain Nurse/Tech Notes S1S2, lungs sound clear Consent: The procedure was explained to the patient in lay terms. Informed consent was witnessed. Cash eout was entered into [employer]. History and Stress Test performed by Payal Thorne R.N. Pharm. Details Pharmacologic stress testing was performed using 0.4mg per 5ml of regadenoson given intravenously ove r 7-10 seconds. Stress Symptoms No chest pain or symptoms. POST EXERCISE Reason for Termination: Infusion complete Target HR: 136 Max HR: 117 bpm Max Blood Pressure: 146/82mmHg Blood Pressure response to exercise: Normal blood pressure response during stress. Chest Pain: No. Arrhythmia: No. ST Change: No. INTERPRETATION Stress EKG Conclusion: Baseline EKG showed sinus rhythm. No ischemic changes at peak stress. No arr hythmias. Imaging Protocol IMAGE PROTOCOL: Rest Tc-99m/stress Tc-99m 1 day Rest: Stress: Viability: Radiopharm.Tc99m AwxchlvlkWz50d Sestamibi Ldvd18qOa 33mCi Img Date 06/21/2019 06/21/2019 Inj-Img Uhxm65bvc. 60min. Rest Admin Site:IV - Left AntecubitalAdministrator:RT Iván (R)(N) Stress Admin Site: IV - Left AntecubitalAdministrator: RT Iván (R)(N) STRESS DATA End Diast. Vol.52.0mlAv. Heart Rate79.0bpm End Syst. Vol.4.0mlCO Index BSA3.8L/min Myocardial Mass99.0gEject. Gbazlzwh63.0% Stress Rates Pk. Fill Rate4.06EDV/secLVtime Pk. Fill 200.92msec Pk. Empty Rate5.54ESV/secLVtime Pk. Utsze010.68msec 1/3 Pk. Fill1.10EDV/sec Stress Scores Regional WT0.00Summed WT0.00 Regional WM0.00Summed WM0.00 Study quality was good. Left Ventricular size was Normal at Rest and Stress. Lung uptake was . Left Ventricular ejection fraction is >80%. The rest and stress images show normal perfusion, normal contraction and thickening. LV Perf. Quant 17 Seg. SSS0.00 17 Seg. SRS0.00 17 Seg. SDS0.00 Stress Defect Extent (% LAD)0.00Rest Defect Extent (% LAD)0.00Rev. Defect Extent (% LAD)0.00 Stress Defect Extent (% LCX) 0.00Rest Defect Extent (% LCX)0.00Rev. Defect Extent (% LCX)0.00 Stress Defect Extent (% RCA)0.00Rest Defect Extent (% RCA)0.00Rev. Defect Extent (% RCA)0.00 Stress Defect Extent (% RADHA)0.00Rest Defect Extent (% RADHA)0.00Rev. Defect Extent (% RADHA)0.00 Conclusion 1. Regadenoson cardioisotope stress test did not show any evidence of ischemia or infarct. 2. Normal left ventricular systolic function with ejection fraction calculated at >80%. 3. Low risk for cardiac events. Signed by : Kena Nicholas, Electronically Approved : 06/21/2019 12:45:13
--- NOTE | 2019-06-22 06:52 | RAD ---
MR#: [id number] Date of Study: 06/21/2019 Ordering Physician: KENA NICHOLAS, Referring Physician: KENA NICHOLAS, Tech: Charlotte Flowers RVT, RDMS APPROVED REPORT Patient Location: OUT-PATIENT Indications Claudication: Cold Sensitivity Risk Factors Hypertension VELOCITY AND DOPPLER WAVEFORM ANALYSIS RIGHT cm/secWaveformSeverity LEFT cm/secWaveform Severity pCFA 78.7TriphasicpCFA Prof Fem Art. 85.0TriphasicProf Fem Art. Fem Art Prox. 103.0TriphasicFem Art Prox. Fem Art Mid. 96.6TriphasicFem Art Mid. Fem Art Dist. 84.5BiphasicFem Art Dist. Pop Art(Fossa) 59.5BiphasicPop Art(AK) PRECISION GRINDER Prox. 55.0BiphasicPTA Prox. PRECISION GRINDER Dist. 59.7BiphasicPTA Dist. Per Art Dist.53.5TriphasicPer Art Dist. PAULA Dist. 52.8BiphasicATA Dist. DPA 53BiphasicDPA Findings On the right side grayscale images of the lower 70 arterial vessels demonstrate mild to moderate diff use atherosclerosis. No focal high-grade obstruction is noted. Color Doppler, spectral images and velocities are grossly within normal limits and overall no signifi cant stenosis is identified. There is three-vessel runoff below the knee. Critical Notification Critical Value: No <Conclusion> 1. No significant right lower extremity arterial disease. Signed by : Harry Saldivar, Electronically Approved : 06/22/2019 06:51:39
== END | disposition home or self-care (01) ==
LOC: ECHO 07:28
PROVIDERS: ATTEND Internal Medicine Cardiovascular Disease
DX: I08.8 Other rheumatic multiple valve diseases (principal); I70.291 Other atherosclerosis of native arteries of extremities, right leg; I10 Essential (primary) hypertension; E11.9 Type 2 diabetes mellitus without complications
CPT/HCPCS: 78452; 93017; 93306; 93926; A9500; J2785